=== PATIENT | female | born 1980 | race Caucasian/White ===

== ENCOUNTER 2024-05-08 08:07 | Inpatient (IN) ==
--- NOTE | 2024-05-08 08:28 | Emergency Department Note ---
Impression & Plan Alcohol withdrawal, Hypomagnesemia, Vomiting, Pancreatitis, Cough, Epigastric abdominal pain ED Provider Note NAME: GLENROY LÓPEZ AGE: 44 SEX: F : 1980 ARRIVES VIA: Walk-In INFORMANT: [Patient] ED PROVIDER(S): [Luis M Gutierrez MD] CHIEF COMPLAINT: Alcohol withdrawal HISTORY OF PRESENT ILLNESS: The patient is a 44-year-old female who has a history of alcoholism. She had been sober for over 3 years but started drinking alcohol again about a months ago. She typically drinks about 15-20 beers a day. The patient states that yesterday, she began having some epigastric abdominal pain. Things worsened today. She last had alcohol around 6 hours ago, she had a twisted tea. Since that timeframe, she has been vomiting and unable to keep anything else in her stomach. She has had diarrhea but this is chronic. She has had a cough but this is chronic. The patient has a history of pancreatitis, she believes she may have pancreatitis again. The patient has had seizures from alcohol withdrawal. She is interested in alcohol detox today. Of note, the patient believes that she is dehydrated. She feels quite thirsty. PMHx/PSHx/Social Hx: See Below PHYSICAL EXAM: GENERAL: Patient is in no acute distress. HEENT: No acute trauma, normocephalic atraumatic, mucous membranes dry, no nasal congestion. NECK: No stridor, no adenopathy, no meningismus, trachea is midline. LUNGS: Clear to auscultation bilaterally, no wheeze, no rhonchi, breath sounds equal. HEART: Mildly tachycardic, regular rhythm, no murmurs. ABDOMEN: Soft, mildly tender in the epigastrium, no distention. EXTREMITIES: No cyanosis, full range of motion of all the joints without pain or difficulty. NEUROLOGIC: Oriented x 3, no acute motor or sensory deficits, no focal weakness. SKIN: No jaundice, no diaphoresis. DIFFERENTIAL DIAGNOSIS: Pancreatitis, bowel obstruction, dehydration, electrolyte imbalance, alcohol withdrawal, dysrhythmia, among others. EMERGENCY DEPARTMENT PROCEDURES: MEDICAL DECISION MAKING: There is no leukocytosis or concerning anemia. There is a lower platelet count at 105. Potassium somewhat low, magnesium was quite low. There was no renal failure. There were some elevated liver enzymes, consistent with her alcohol abuse. No evidence for pancreatitis by laboratory testing. The TSH was somewhat high however, the T4 was normal. Alcohol level was elevated at 166, consistent with her alcohol abuse. COVID, influenza and RSV test were negative. Chest x-ray shows some atelectasis or infiltrate at the right lower lung. Abdominal and pelvis that he does suggest pancreatitis, no bowel obstruction. On exam, the patient was mildly tachycardic upon arrival, she was not toxic. The patient received IV thiamine and IV folate. She was given 1 L of IV saline for hydration. She was given IV Phenergan for nausea, she received oral and IV magnesium. She was given IV Protonix. She received IV Zofran. She was given IV Valium and IV Tylenol. She received IV Pepcid. With the above treatment, the patient does seem to be doing better, her heart rate has decreased, she seems more comfortable. Her blood pressure has improved, it was higher when she first arrived. I do think the patient is in need of a hospital stay for her presentation. The primary issue is the alcohol withdrawal and presumed early pancreatitis, the secondary issue centers on the abnormal chest x-ray findings. I spoke with the patient and I spoke with case management, the on-call hospitalist was consulted. Prior/Outside records/notes reviewed: None ECG per my interpretation: Indication was withdrawal. The ECG shows a normal sinus rhythm with a rate of 95. There are some inverted T waves across the anterior leads. There is no acute ST elevation, no PVCs. The QTc is 444. Continuous Cardiac Monitoring per my interpretation: An order was placed for continuous cardiac monitoring. The monitor shows a rate of 112 with sinus tachycardia. Imaging/x-ray results per my interpretation: Chest x-ray shows a potential infiltrate versus atelectasis in the right lower lung. Chronic Medical/Social conditions affecting care: History of alcoholism Care/Management discussed with: Case management, the on-call hospitalist. Level of care consideration(s): After review of the information above and other included data: --I believe the patient requires escalation of care to admission Critical Care Note: I have personally spent 43 minutes of critical care time in the direct management of this patient. This includes bedside care, interpretation of diagnostic studies, and testing, discussion with consultants, patient, and family members, and other required patient management activities. This 43 minutes is in excess of all separately billable procedures. DISPOSITION: Admission Past Med/Surg History Problem List (Updated 05/08/24 @ 14:34 by Luis M Gutiererz MD) Epigastric abdominal pain (Acute) Cough (Acute) Pancreatitis (Acute) Vomiting (Acute) Hypomagnesemia (Acute) Alcohol withdrawal (Acute) Acute bronchitis Hypothyroidism Hypertension Acute pancreatitis Medical History Alcohol withdrawal Social History Smoking Status: Current every day smoker Feels Safe at Home: Yes Allergies Allergies Allergy/AdvReac Type Severity Reaction Status Date / Time No Known Allergies Allergy Unverified 05/08/24 08:13 Home Meds Home Medications Medication Instructions Recorded Confirmed levothyroxine 50 mcg tablet 50 mcg PO QAM 05/08/24 05/08/24 lisinopril 20 mg tablet 20 mg PO QAM 05/08/24 05/08/24 Results & Data (ED) Vital Signs Vital Signs - 24 hr 05/08/24 08:11 05/08/24 08:24 05/08/24 09:00 Temperature 36.8 C Temperature Source Oral Pulse Rate 115 H 102 H Respiratory Rate 16 15 Blood Pressure 185/110 H 130/113 H 158/99 H Blood Pressure Mean 135 118 119 Blood Pressure Position Sitting Pulse Oximetry 98 94 Oxygen Delivery Method Room Air Room Air Sepsis Recent Fever Within 48 Hours No Sepsis New/Unexplained Change in Mental Status No Sepsis Action Taken by Nursing No Action Required 05/08/24 09:00 05/08/24 10:01 Temperature Temperature Source Pulse Rate 90 95 H Respiratory Rate 16 16 Blood Pressure 158/99 H 143/84 H Blood Pressure Mean 118 102 Blood Pressure Position Pulse Oximetry 96 97 Oxygen Delivery Method Room Air Room Air Sepsis Recent Fever Within 48 Hours Sepsis New/Unexplained Change in Mental Status Sepsis Action Taken by Long Term Medications Current Medication List: was personally reviewed by me Laboratory Data Attestation: I reviewed the patient's lab results. 05/08/24 09:56 05/08/24 09:56 Lab Results 05/08/24 05/08/24 05/08/24 Range/Units 08:33 09:56 10:06 WBC Cancelled 5.11 RBC Cancelled 4.35 Hgb Cancelled 14.8 Hct Cancelled 42.4 MCV Cancelled 97.5 MCH Cancelled 34.0 MCHC Cancelled 34.9 RDW Std Deviation Cancelled 40.7 RDW Coeff of Yen Cancelled 11.3 L Plt Count Cancelled 105 L MPV Cancelled 10.6 Immature Gran % (Auto) Cancelled 0.2 Neut % (Auto) Cancelled 46.9 Lymph % (Auto) Cancelled 40.1 [place] % (Auto) Cancelled 10.6 Eos % (Auto) Cancelled 1.4 Baso % (Auto) Cancelled 0.8 Neut # (Auto) Cancelled 2.40 Lymph # (Auto) Cancelled 2.05 [place] # (Auto) Cancelled 0.54 Eos # (Auto) Cancelled 0.07 Baso # (Auto) Cancelled 0.04 Immature Gran # (Auto) Cancelled 0.01 Absolute Nucleated RBC Cancelled Nucleated RBC % (auto) Cancelled Neutrophils % (Manual) Cancelled Band Neutrophils % Cancelled Lymphocytes % (Manual) Cancelled Prolymphocyte % Cancelled Reactive Lymphs % (Man) Cancelled Monocytes % (Manual) Cancelled Eosinophils % (Manual) Cancelled Basophils % (Manual) Cancelled Metamyelocytes % (Man) Cancelled Myelocytes % (Man) Cancelled Promyelocytes % (Man) Cancelled Blast Cells % (Manual) Cancelled Plasma Cell % (Manual) Cancelled Other Cells % Cancelled Nucleated RBC % Cancelled Neutrophils # (Manual) Cancelled Band Neutrophils # Cancelled Total Absolute Neuts Cancelled Lymphocytes # (Manual) Cancelled Prolymphocyte # Cancelled Reactive Lymphs # Cancelled Total Abs Lymphocytes Cancelled Monocytes # (Manual) Cancelled Eosinophils # (Manual) Cancelled Basophils # (Manual) Cancelled Metamyelocytes # (Man) Cancelled Myelocytes # (Manual) Cancelled Promyelocytes # (Man) Cancelled Blast Cells # (Man) Cancelled Plasma Cell # (Manual) Cancelled Other Cells # Cancelled Nucleated RBCs # (Man) Cancelled Hypersegmented Neuts Cancelled Hyposegmented Neuts Cancelled Hypogranular Neuts Cancelled Large Granular Lymphs Cancelled # Lrg Granular Lymphs Cancelled Hairy Cells Cancelled Smudge Cells Cancelled Toxic Granulation Cancelled Toxic Vacuolation Cancelled Dohle Bodies Cancelled Geo Rods Cancelled Platelet Estimate Cancelled Hypogranular Platelets Cancelled Giant Platelets Cancelled Platelet Satelliting Cancelled RBC Morphology Cancelled Polychromasia Cancelled Hypochromasia Cancelled Poikilocytosis Cancelled Basophilic Stippling Cancelled Anisocytosis Cancelled Microcytosis Cancelled Macrocytosis Cancelled Spherocytes Cancelled Pappenheimer Bodies Cancelled Sickle Cells Cancelled Target Cells Cancelled Tear Drop Cells Cancelled Ovalocytes Cancelled Stomatocytes Cancelled Ashley-Leary Bodies Cancelled Echinocytes Cancelled Acanthocytes (Spur) Cancelled Rouleaux Cancelled RBC Agglutinates Cancelled Schistocytes Cancelled Sezary Cell Cancelled Sodium TNP 134 L Potassium TNP 3.4 L Chloride 93 L (98-107) mmol/L Carbon Dioxide 30 (21-32) mmol/L Anion Gap TNP BUN 2 L (6-23) mg/dl Creatinine 0.58 L (0.6-1.2) mg/dl Est Cr Clr Drug Dosing 124.5 ml/min eGFR 113.66 BUN/Creatinine Ratio 3.4 L (10-20) Glucose 113 H (70-99(Fasting)) mg/dl Calcium 11.3 H (8.6-10.3) mg/dl Phosphorus 3.8 (2.5-4.9) mg/dl Magnesium TNP 1.0 L Total Bilirubin 0.9 (0.2-1.0) mg/dl AST TNP 73 H ALT 74 H (7-52) U/L Alkaline Phosphatase 87 (34-104) U/L Total Protein 7.7 (6.0-8.3) gm/dl Albumin 3.8 (3.4-5.0) gm/dl Globulin 3.9 (2.5-4.0) gm/dl Albumin/Globulin Ratio 1.0 (0.9-2) Lipase 68 (11-82) U/L TSH 6.995 H (0.300-4.500) uIu/ml Free T4 1.00 (0.61-1.60) ng/dl Ethyl Alcohol mg/dL 166.3 H (<10.0) mg/dl SARS-CoV-2 (PCR) NEGATIVE (Negative) Influenza Type A (PCR) Negative (Neg) Influenza Type B (PCR) Negative (Neg) RSV (RT-PCR) Negative (Neg) Blood Parasites ID Cancelled Administered Medications Acetaminophen (Acetaminophen 325 Mg Tab) 650 mg PO Q6H PRN PRN Reason: Pain Stop: 06/07/24 11:44 Last Admin: 05/08/24 14:23 Dose: 650 mg Documented By: TRINY Hydromorphone HCl (Hydromorphone Inj 0.5 Mg/0.5 Ml Syr) 0.25 mg IV Q6H PRN PRN Reason: Pain Stop: 05/22/24 11:41 Last Admin: 05/08/24 12:23 Dose: 0.25 mg Documented By: TRINY Potassium Chloride/Sodium Chloride (Normal Saline W/20 Meq Kcl) 20 meq in 1,000 mls @ 80 mls/hr IV .[id number] NITA Stop: 05/10/24 03:14 Last Admin: 05/08/24 13:29 Dose: 80 mls/hr Documented By: TRINY Ondansetron HCl (Ondansetron Inj 2 Mg/Ml 2 Ml Vial) 4 mg IV Q6H PRN PRN Reason: Nausea And Vomiting Stop: 06/07/24 11:39 Last Admin: 05/08/24 12:24 Dose: 4 mg Documented By: TRINY Discontinued Medications Diazepam (Diazepam 5 Mg/Ml 10ml Vial) 5 mg IV NOW STA Stop: 05/08/24 08:24 Last Admin: 05/08/24 08:38 Dose: 5 mg Documented By: WILBERTO Doxycycline Hyclate (Doxycycline Hyclate 100 Mg Cap) 100 mg PO ONE ONE Stop: 05/08/24 12:01 Last Admin: 05/08/24 13:11 Dose: 100 mg Documented By: TRINY Folic Acid (Folic Acid 1 Mg Tab) 1 mg PO ONE ONE Stop: 05/08/24 12:01 Last Admin: 05/08/24 12:24 Dose: 1 mg Documented By: TRINY Gabapentin (Gabapentin 600 Mg Tab) 1,200 mg PO NOW ONE Stop: 05/08/24 11:34 Last Admin: 05/08/24 13:12 Dose: 1,200 mg Documented By: TRINY Promethazine HCl (Phenergan) 12.5 mg in 50.5 mls @ 202 mls/hr IV NOW STA Stop: 05/08/24 08:30 Last Infusion: 05/08/24 09:15 Dose: Infused Documented By: Admin: 05/08/24 08:40 Dose: 202 mls/hr Documented By: WILBERTO Thiamine HCl 100 mg/ Syringe 10 mls @ 2 mls/min IV NOW STA Stop: 05/08/24 08:20 Last Admin: 05/08/24 09:23 Dose: 2 mls/min Documented By: WILBERTO Folic Acid 1 mg/ Syringe 10 mls @ 5 mls/min IV NOW STA Stop: 05/08/24 08:17 Last Admin: 05/08/24 09:23 Dose: 5 mls/min Documented By: WILBERTO Acetaminophen (Ofirmev) 1,000 mg in 100 mls @ 400 mls/hr IV NOW STA Stop: 05/08/24 08:37 Last Infusion: 05/08/24 09:08 Dose: Infused Documented By: Admin: 05/08/24 08:48 Dose: 400 mls/hr Documented By: WILBERTO Sodium Chloride (Nss) 1,000 mls @ 999 mls/hr IV .Q1H1M ONE Stop: 05/08/24 09:23 Last Infusion: 05/08/24 09:38 Dose: Infused Documented By: Admin: 05/08/24 08:35 Dose: 999 mls/hr Documented By: WILBERTO Famotidine (Pepcid 20mg Iv Push) 20 mg in 5 mls @ 2.5 mls/min IV NOW STA Stop: 05/08/24 08:29 Last Admin: 05/08/24 08:37 Dose: 2.5 mls/min Documented By: WILBERTO Pantoprazole Sodium (Protonix) 40 mg in 10 mls @ 5 mls/min IV NOW ONE Stop: 05/08/24 08:29 Last Admin: 05/08/24 09:24 Dose: 5 mls/min Documented By: WILBERTO Magnesium Sulfate/Dextrose (Magnesium Sulfate / D5w) 1 gm in 100 mls @ 100 mls/hr IV NOW STA Stop: 05/08/24 11:30 Last Infusion: 05/08/24 11:41 Dose: Infused Documented By: Admin: 05/08/24 10:37 Dose: 100 mls/hr Documented By: WILBERTO Potassium Chloride (K Elliot / Wtr) 10 meq in 100 mls @ 100 mls/hr IV Q1H NITA Stop: 05/08/24 13:14 Last Infusion: 05/08/24 14:15 Dose: Infused Documented By: Admin: 05/08/24 13:12 Dose: 100 mls/hr Documented By: Infusion: 05/08/24 12:49 Dose: Infused Documented By: Admin: 05/08/24 11:46 Dose: 100 mls/hr Documented By: TRINY Ioversol (Optiray 320 100ml) 94 ml IV ONCE ONE Stop: 05/08/24 10:17 Last Admin: 05/08/24 10:16 Dose: 94 ml Documented By: CRAIG Magnesium Oxide (Magnesium Oxide 400 Mg Tab) 400 mg PO NOW STA Stop: 05/08/24 10:32 Last Admin: 05/08/24 10:37 Dose: 400 mg Documented By: WILBERTO Ondansetron HCl (Ondansetron Inj 2 Mg/Ml 2 Ml Vial) 4 mg IV NOW STA Stop: 05/08/24 08:17 Last Admin: 05/08/24 08:38 Dose: 4 mg Documented By: WILBERTO Thiamine HCl (Thiamine Hcl 100 Mg Tab) 100 mg PO ONE ONE Stop: 05/08/24 12:16 Last Admin: 05/08/24 12:24 Dose: 100 mg Documented By: TRINY Imaging Data Radiologist's Impression: Abdomen/Pelvis CT 05/08/24 08:23 CT OF THE ABDOMEN AND PELVIS WITH CONTRAST CLINICAL HISTORY: Epigastric pain and vomiting. COMPARISON STUDY: None. TECHNIQUE: Following IV administration of 94 mL of Optiray, axial images of the abdomen and pelvis were obtained from the lung bases to the proximal femurs. Images were reviewed in the axial, sagittal, and coronal planes. IV contrast was administered without complication. Automated exposure control was utilized for the study. A dose lowering technique was utilized adhering to the principles of ALARA. CT DOSE: 1187.36 mGy.cm FINDINGS: An 8 mm calcified right lower lobe pulmonary nodule is benign. Moderate groundglass opacities within the lower lungs are present. These are most pronounced within the right middle and right lower lobes. No pneumatosis, free air or portal venous gas is present. There is severe hepatic steatosis. Nodularity of the liver surface is present. No hepatic lesions are identified on the venous phase exam. Recanalized paraumbilical vein is present. Size of the spleen is normal. Adrenal glands are unremarkable. A few small bilateral renal calculi measure up to 3 mm. There are no ureteral calculi. There is no hydronephrosis. There is heterogeneity of the uncinate process of the pancreas with mild peripancreatic stranding. A few calcifications within the uncinate process of the pancreas measure up to 3 mm. No peripancreatic fluid collections are present. There is no biliary ductal dilatation status post cholecystectomy. There is no evidence for a bowel obstruction. Caliber and wall thickness of small and large bowel are normal. The left arm of the intrauterine device appears to slightly extend through the myometrium. The main, left and right portal veins are patent. IMPRESSION: 1. Heterogeneity of the uncinate process of the pancreas with mild peripancreatic stranding suggestive of acute pancreatitis. No peripancreatic fluid collections. No biliary ductal dilatation status post cholecystectomy. A few calcifications within the uncinate process of the pancreas could be related to chronic pancreatitis or represent small ductal calculi. 2. Moderate lower lung groundglass opacities. These suggest an infectious process such as viral pneumonia although are age indeterminate. A follow-up chest CT in 3 months to ensure resolution is recommended. 3. Severe hepatic steatosis with suspected cirrhosis. Recanalized paraumbilical vein suggests portal hypertension. 4. Suspected malpositioned IUD. The left arm appears to slightly extend through the myometrium. 5. Small bilateral renal calculi. ACT 112: Negative or not required by law. Electronically signed by: Octavio Marie M.D. 05/08/2024 10:37 AM Chest X-Ray 05/08/24 08:23 XR chest 1V portable HISTORY: 44 years-old Female vomiting COMPARISON: None TECHNIQUE: AP view of the chest FINDINGS: Cardiac silhouette is upper limits of normal in size. Mild hypoinflation with interstitial coarsening. Patchy ill-defined right basilar predominant opacities. Bones appear intact. IMPRESSION: Mild hypoinflation with ill-defined right basilar predominant opacities which may represent atelectasis versus pneumonitis. ACT 112: Negative or not required by law. The above report was generated using voice recognition software. It may contain grammatical, syntax or spelling errors. Electronically signed by: Aroldo Madrigal M.D. 05/08/2024 9:38 AM Discharge Plan Visit Data Chief Complaint: Alcohol Withdrawal Stated Complaint: ALCOHOL WITHDRAWAL, HAS PANCREATITIS, ABD PAIN ED Provider: Luis M Gutierrez Discharge Problem: Alcohol withdrawal, Hypomagnesemia, Vomiting, Pancreatitis, Cough, Epigastric abdominal pain Patient Disposition: Admitted As Inpatient Condition: Fair Discharge Instructions Interventions: ED Discharge Assessment Last Done: 05/08/24 13:42 Discharge Problem: Alcohol withdrawal Qualifiers: Complication of substance-induced condition: with unspecified complication Q ualified Code(s): F10.939 - Alcohol use, unspecified with withdrawal, unspecified Vomiting Qualifiers: Vomiting type: unspecified Nausea presence: with nausea Qualified Code(s): R 11.2 - Nausea with vomiting, unspecified Pancreatitis Qualifiers: Chronicity: acute Pancreatitis type: alcohol induced Acute pancreatitis complication: no infection or necrosis Qualified Code(s): K85.20 - Alcohol induced acute pancreatitis without necrosis or infection Cough Qualifiers: Cough type: unspecified Qualified Code(s): R05.9 - Cough, unspecified
[2024-05-08] MEDS: SODIUM CHLORIDE 0.9% 1,000 ML IV ONE (08:35)
[2024-05-08] MEDS: FAMOTIDINE 20MG IV PUSH 20 MG/5 ML SYR IV STA (08:37)
[2024-05-08] MEDS: diazePAM 5 MG/ML 10ML VIAL IV STA (08:38)
[2024-05-08] MEDS: ONDANSETRON INJ 2 MG/ML 2 ML VIAL IV STA (08:38)
[2024-05-08] MEDS: PROMETHAZINE 12.5 MG/50.5 ML BAG IV STA (08:40)
[2024-05-08] MEDS: ACETAMINOPHEN 1,000 MG/100 ML VIAL IV STA (08:48)
[2024-05-08] MEDS: FOLIC ACID 1 MG in SYRINGE 9.8 ML IV STA (09:23)
[2024-05-08] MEDS: THIAMINE HCL 100 MG in SYRINGE 9 ML IV STA (09:23)
[2024-05-08] MEDS: PANTOprazole 40 MG/10 ML SYR IV ONE (09:24)
[2024-05-08 09:34] LABS: Alanine Aminotransferase 74 U/L (7-52); Albumin Level 3.8 gm/dl (3.4-5.0); Alkaline Phosphatase 87 U/L (34-104); BUN Creatinine Ratio 3.4 (10-20); Bilirubin,Total 0.9 mg/dl (0.2-1.0); Blood Urea Nitrogen 2 mg/dl (6-23); Calcium 11.3 mg/dl (8.6-10.3); Carbon Dioxide 30 mmol/L (21-32); Chloride 93 mmol/L (98-107); Creatinine Clr Calc Pharmacy 124.5 ml/min; Globulin 3.9 gm/dl (2.5-4.0); Glucose 113 mg/dl (70-99(Fasting)); Lipase 68 U/L (11-82); Thyroid Stimulating Hormone 6.995 uIu/ml (0.300-4.500); Total Protein 7.7 gm/dl (6.0-8.3)
--- NOTE | 2024-05-08 09:41 | XRay Report ---
XR chest 1V portable HISTORY: 44 years-old Female vomiting COMPARISON: None TECHNIQUE: AP view of the chest FINDINGS: Cardiac silhouette is upper limits of normal in size. Mild hypoinflation with interstitial coarsening . Patchy ill-defined right basilar predominant opacities. Bones appear intact. IMPRESSION: Mild hypoinflation with ill-defined right basilar predominant opacities which may represe nt atelectasis versus pneumonitis. ACT 112: Negative or not required by law. The above report was generated using voice recognition software. It may contain grammatical, syntax o r spelling errors. Electronically signed by: Aroldo Madrigal M.D. 05/08/2024 9:38 AM
[2024-05-08] MEDS: OPTIRAY 320 100ml IV ONE (10:16)
[2024-05-08 10:18] LABS: Basophils # (auto) 0.04 K/uL (0.00-0.20); Basophils % (auto) 0.8 %; Eosinophils # (auto) 0.07 K/uL (0.00-0.50); Eosinophils % (auto) 1.4 %; Hematocrit (blood only) 42.4 % (37.0-47.0); Hemoglobin 14.8 g/dl (12.0-16.0); Immature Granulocytes # (auto) 0.01 K/uL (0.01-0.20); Immature Granulocytes % (auto) 0.2 %; Lymphocytes # (auto) 2.05 K/uL (1.20-3.40); Lymphocytes % (auto) 40.1 %; Mean Corpuscular Hgb Conc 34.9 g/dL (32.0-36.0); Mean Corpuscular Volume 97.5 fL (80.0-100.0); Mean Platelet Volume 10.6 fL (9.4-12.4); Monocytes # (auto) 0.54 K/uL (0.11-0.59); Monocytes % (auto) 10.6 %; Neutrophils % (auto) 46.9 %; Platelet Count 105 K/uL (130-400); RDW Coefficient of Variation 11.3 % (11.5-14.5); RDW Standard Deviation 40.7 fL (36.4-46.3); Red Blood Count 4.35 M/uL (4.20-5.40); White Blood Count 5.11 K/ul (4.8-10.8)
[2024-05-08 10:29] LABS: Potassium 3.4 mmol/L (3.5-5.1)
[2024-05-08] MEDS: MAGNESIUM OXIDE 400 MG TAB PO STA (10:37)
[2024-05-08] MEDS: MAGNESIUM SULFATE / D5W 1 GM/100 ML BAG IV STA (10:37)
--- NOTE | 2024-05-08 10:39 | CT Scan Report ---
CT OF THE ABDOMEN AND PELVIS WITH CONTRAST CLINICAL HISTORY: Epigastric pain and vomiting. COMPARISON STUDY: None. TECHNIQUE: Following IV administration of 94 mL of Optiray, axial images of the abdomen and pelvis we re obtained from the lung bases to the proximal femurs. Images were reviewed in the axial, sagittal, and coronal planes. IV contrast was administered without complication. Automated exposure control wa s utilized for the study. A dose lowering technique was utilized adhering to the principles of ALARA . CT DOSE: 1187.36 mGy.cm FINDINGS: An 8 mm calcified right lower lobe pulmonary nodule is benign. Moderate groundglass opaciti es within the lower lungs are present. These are most pronounced within the right middle and right lo wer lobes. No pneumatosis, free air or portal venous gas is present. There is severe hepatic steatosi s. Nodularity of the liver surface is present. No hepatic lesions are identified on the venous phase exam. Recanalized paraumbilical vein is present. Size of the spleen is normal. Adrenal glands are unr emarkable. A few small bilateral renal calculi measure up to 3 mm. There are no ureteral calculi. The re is no hydronephrosis. There is heterogeneity of the uncinate process of the pancreas with mild per ipancreatic stranding. A few calcifications within the uncinate process of the pancreas measure up to 3 mm. No peripancreatic fluid collections are present. There is no biliary ductal dilatation status post cholecystectomy. There is no evidence for a bowel obstruction. Caliber and wall thickness of sma ll and large bowel are normal. The left arm of the intrauterine device appears to slightly extend thr ough the myometrium. The main, left and right portal veins are patent. IMPRESSION: 1. Heterogeneity of the uncinate process of the pancreas with mild peripancreatic stranding suggestiv e of acute pancreatitis. No peripancreatic fluid collections. No biliary ductal dilatation status pos t cholecystectomy. A few calcifications within the uncinate process of the pancreas could be related to chronic pancreatitis or represent small ductal calculi. 2. Moderate lower lung groundglass opacities. These suggest an infectious process such as viral pneum onia although are age indeterminate. A follow-up chest CT in 3 months to ensure resolution is recomme nded. 3. Severe hepatic steatosis with suspected cirrhosis. Recanalized paraumbilical vein suggests portal hypertension. 4. Suspected malpositioned IUD. The left arm appears to slightly extend through the myometrium. 5. Small bilateral renal calculi. ACT 112: Negative or not required by law. Electronically signed by: Octavio Marie M.D. 05/08/2024 10:37 AM
[2024-05-08 10:50] LABS: Influenza A virus by PCR Negative (Neg); Influenza B virus by PCR Negative (Neg); RSV by PCR Negative (Neg); SARS CoV2 RNA(COVID-19) Ceph NEGATIVE (Negative)
[2024-05-08] MEDS ORDERED: LORazepam 2 MG/1 ML VIAL IV PRN ×4 (11:33→16:48)
[2024-05-08] MEDS ORDERED: GABAPENTIN 1200MG ALCOHOL WITHDRAWAL LOAD PO STA (11:33)
[2024-05-08] MEDS: POTASSIUM CHLORIDE / WTR 10 MEQ/100 ML PLCT IV SCH (11:46)
--- NOTE | 2024-05-08 11:58 | History & Physical Report ---
Date of Service May 08, 2024 Assessment & Plan (1) Acute pancreatitis: Plan: Abdominal pain with nausea and diarrhea for the last 2 to 3 days Acute pancreatitis secondary to alcoholism She has been drinking about 15-20 beers a day recently Will give her IV fluid and symptomatic management She will have liquid diet to start with (2) Alcohol withdrawal: Plan: Long history of alcoholism been sober for the last 2 to 3 years Started to drink recently and has been drinking heavily about 15 beers a day She has been complaining abdominal pain with some withdrawal symptoms History of alcohol induced seizures- seizure precaution Will have gabapentin protocol for withdrawal symptoms She was strongly advised to go for inpatient alcohol rehab and she will think about it Electrolyte imbalance Has hypokalemia, hypomagnesemia and is still awaiting for phosphorus level Will replace magnesium and potassium and monitor Cirrhosis as per the imaging studies Secondary to prolonged use of alcohol Strongly advised to quit drinking (3) Hypertension: Plan: continue lisinopril (4) Hypothyroidism: Plan: continue replacement therapy (5) Acute bronchitis: Plan: also has cough with productive of whitish-yellow phlegm She is a smoker Chest x-ray supportive of some pneumonitis Will start doxycycline orally Plan DVT prophylaxis subcu heparin CODE STATUS full History of Present Illness Chief Complaint: Abdominal pain, nausea and diarrhea for the last 2 days Primary Care Provider: Anupam Mi MD she is a 44-year-old female significant past medical history of hypertension, hypothyroidism and alcohol abuse apparently has been drinking a lot recently.She has been complaining of abdominal pain with nausea and diarrhea which has been going on for the last 2 to 3 days and the condition got worse today. she had history of alcoholism and also sober for about a few years and started drinking recently. He denies any fever and or chills but has cough without any phlegm. He denies any chest pain and/or palpitation and denies any problem with her. she had history of alcohol induced seizures. She was noted to have high alcohol level and no significant tremors but likely has pancreatitis given the symptoms and CT findings of pancreatic inflammation. Allergies Allergy/AdvReac Type Severity Reaction Status Date / Time No Known Allergies Allergy Unverified 05/08/24 08:13 Home Medications Medication Instructions Recorded Confirmed Type levothyroxine 50 mcg tablet 50 mcg PO QAM 05/08/24 05/08/24 History lisinopril 20 mg tablet 20 mg PO QAM 05/08/24 05/08/24 History Past Med/Surg History Problem List (Updated 05/08/24 @ 11:52 by Tabitha Shannon MD) Acute bronchitis Hypothyroidism Hypertension Alcohol withdrawal Acute pancreatitis Social History Smoking Status: Current every day smoker Feels Safe at Home: Yes Review of Systems Review of Systems: All systems reviewed and are unremarkable except as noted below Physical Exam Physical Exam: Sitting on bed without any acute distress but very anxious Constitutional: well developed, well nourished, + ill appearing and average body habitus Eyes: PERRL, conjunctivae normal, anicteric sclerae ENMT: external ear and nose normal, oropharynx normal Neck: trachea midline, no thyromegaly Respiratory: normal respiratory effort, lungs clear to auscultation Cardiovascular: Rate/Rhythm: regular rate and regular rhythm; not tachycardic Heart Sounds: normal S1 and normal S2; no murmur Extremities: no edema Gastrointestinal (Abdomen): Inspection/Auscultation: normal bowel sounds; abdomen not distended Percussion/Palpation: + abdomen tender ( minimally tender in the epigastrium) and abdomen soft Musculoskeletal: no acute arthritis involving any joint Neurologic: normal touch/pain/proprioception and moves all extremities; no focal motor deficits Lymphatic: no cervical or axillary lymphadenopathy Results & Data Results & Data Vital Signs (Past 12 Hours) Vital Signs Temp Pulse Resp BP Pulse Ox O2 Del Method 05/08/24 10:01 95 H 16 143/84 H 97 Room Air 05/08/24 09:00 90 16 158/99 H 96 Room Air 05/08/24 09:00 158/99 H 05/08/24 08:24 102 H 15 130/113 H 94 Room Air 05/08/24 08:11 36.8 C 115 H 16 185/110 H 98 Room Air Laboratory Results Short CBC 05/08/24 05/08/24 Range/Units 08:33 09:56 WBC Cancelled 5.11 Hgb Cancelled 14.8 Hct Cancelled 42.4 Plt Count Cancelled 105 L BMP 05/08/24 05/08/24 08:33 09:56 Sodium TNP 134 L Potassium TNP 3.4 L Chloride 93 L Carbon Dioxide 30 BUN 2 L Creatinine 0.58 L Glucose 113 H Calcium 11.3 H Liver Function 05/08/24 05/08/24 Range/Units 08:33 09:56 Total Bilirubin 0.9 (0.2-1.0) mg/dl AST TNP 73 H ALT 74 H (7-52) U/L Alkaline Phosphatase 87 (34-104) U/L Albumin 3.8 (3.4-5.0) gm/dl Medications Administered Current Inpatient Medications Acetaminophen (Acetaminophen 325 Mg Tab) 650 mg PO Q6H PRN PRN Reason: Pain Stop: 06/07/24 11:44 Doxycycline Hyclate (Doxycycline Hyclate 100 Mg Cap) 100 mg PO BID NITA Stop: 05/15/24 11:44 Folic Acid (Folic Acid 1 Mg Tab) 1 mg PO QAM NITA Stop: 06/07/24 11:44 Gabapentin (Gabapentin 1200mg Alcohol Withdrawal Load) 1 each PO NOW STA; Protocol Stop: 05/08/24 11:34 Gabapentin (Gabapentin 600 Mg Tab) 1,200 mg PO NOW ONE Stop: 05/08/24 11:34 Gabapentin (Gabapentin 600 Mg Tab) 600 mg PO Q6H NITA Stop: 05/08/24 23:46 Gabapentin (Gabapentin 600 Mg Tab) 600 mg PO Q8H NITA Stop: 05/09/24 23:46 Gabapentin (Gabapentin 600 Mg Tab) 600 mg PO Q12H NITA Stop: 05/10/24 23:46 Gabapentin (Gabapentin 600 Mg Tab) 600 mg PO Q24H NITA Stop: 05/11/24 23:46 Hydromorphone HCl (Hydromorphone Inj 0.5 Mg/0.5 Ml Syr) 0.25 mg IV Q6H PRN PRN Reason: Pain Stop: 05/22/24 11:41 Potassium Chloride (K Elliot / Wtr) 10 meq in 100 mls @ 100 mls/hr IV Q1H NITA Stop: 05/08/24 13:14 Last Admin: 05/08/24 11:46 Dose: 100 mls/hr Potassium Chloride/Sodium Chloride (Normal Saline W/20 Meq Kcl) 20 meq in 1,000 mls @ 80 mls/hr IV .[id number] NITA Stop: 05/10/24 01:14 Lorazepam (Lorazepam 2 Mg/1 Ml Vial) 1 mg IV ONE PRN; Protocol PRN Reason: EtoH Withdrawal AWSS 6-10 Multivitamins (Multivitamin Tab) 1 tab PO QAM NITA Stop: 06/08/24 08:59 Ondansetron HCl (Ondansetron Inj 2 Mg/Ml 2 Ml Vial) 4 mg IV Q6H PRN PRN Reason: Nausea And Vomiting Stop: 06/07/24 11:39 Thiamine HCl (Thiamine Hcl 100 Mg Tab) 100 mg PO QAM [facility] Stop: 06/07/24 11:44 Code Status & VTE Plan VTE Prophylaxis Plan VTE Prophylaxis will be ordered: Yes
[2024-05-08 12:08] LABS: Phosphorus 3.8 mg/dl (2.5-4.9)
[2024-05-08] MEDS: HYDROmorphone INJ 0.5 MG/0.5 ML SYR IV PRN (12:23)
[2024-05-08] MEDS: FOLIC ACID 1 MG TAB PO ONE (12:24)
[2024-05-08] MEDS: THIAMINE HCL 100 MG TAB PO ONE (12:24)
[2024-05-08] MEDS: ONDANSETRON INJ 2 MG/ML 2 ML VIAL IV PRN (12:24)
--- NOTE | 2024-05-08 12:51 | Electrocardiogram Report ---
Test Reason : Blood Pressure : */* mmHG Vent. Rate : 95 BPM Atrial Rate : 95 BPM P-R Int : 116 ms QRS Dur : 82 ms QT Int : 354 ms P-R-T Axes : 11 13 -9 degrees QTcB Int : 444 ms Normal sinus rhythm Nonspecific T wave abnormality Poor R wave progression, consider anterior MS vs. lead placement vs. LVH Abnormal ECG No previous ECGs available Confirmed by Gerardo Rich ([id number]) on 05/08/2024 12:51:17 PM Referred By: REFERRED SELF Confirmed By: Gerardo Rich
[2024-05-08] MEDS: DOXYCYCLINE HYCLATE 100 MG CAP PO ONE (13:11)
[2024-05-08] MEDS: GABAPENTIN 600 MG TAB PO ONE (13:12)
[2024-05-08] MEDS: NSS + 20MEQ KCL 20 MEQ/1,000 ML BAG IV SCH (13:29)
[2024-05-08] MEDS: ACETAMINOPHEN 325 MG TAB PO PRN (14:23)
[2024-05-08] MEDS: lisinopril 20 MG TAB PO SCH (14:26)
[2024-05-08] MEDS ORDERED: Ativan IV Alcohol Withdrawal--Active Protocol IV PRN (16:48)
[2024-05-08] MEDS: LORazepam 2 MG/1 ML VIAL IV STA ×2 (17:17→18:18)
[2024-05-08] MEDS: DOXYCYCLINE HYCLATE 100 MG CAP PO SCH (19:44)
[2024-05-08] MEDS: GABAPENTIN 600 MG TAB PO SCH (19:44)
[2024-05-08 21:49] LABS: Appearance Urine Clear (Clear); Bacteria Urine Automated 2+ (None Seen); Bilirubin Urine Negative (Negative); Blood Urine Negative (Negative); Cast Urine Automated 0-2 /lpf (0-2); Color Urine Orange; Glucose Urine UA Negative (Negative); Ketones Urine Negative (Negative); Leukocyte Esterase Urine 2+ (Negative); Nitrite Urine Negative (Negative); Protein Urine Negative (Negative); Specific Gravity Urine 1.032 (1.000-1.030); Urobilinogen Urine Negative (Negative); WBC Urine Automated 0-5 /hpf (0-5); pH Urine 7.5 (4.5-7.5)
--- OUTSIDE RECORDS SUMMARY | 2024-05-08 21:54 | External Medical Summary | Summary of Care ---
Author Name Unknown Organization [facility] Address [address] [facility] [place] [address] Phone [phone] Care Team Providers Care Machine Design Teacher Name Role Phone Unavailable Primary Care Provider Unavailabl e Reason for Visit * Reason Comments eRx-Medication Refill Encounter Details Date Type Department Care Team (Late st Contact Info) Description 12/12/2023 Refill Family Medicine [address] [place] [phone] Milli Traylor [address] [place] [address] Hypothyroidism Allergies No known active allergiesdocumented as of this encounter (statuses as of 12/16/2023) Medications Medication Sig Dispensed Refills Start Date End Date Status Lisinopril 20 MG Oral Tablet (Prinivil)Indica tions:HTN, goal below 130/80 Take 1 Tablet by mouth in the morning. 30 Tablet 11 10/11/2023 Active Levothyroxine Sodium 50 MCG Oral Tablet (Levoxyl)Indicat ions:Hypothyroid ism TAKE 1 TABLET BY MOUTH IN THE MORNING. (AT LEAST 30 MIN PRIOR TO BREAKFAST OR OTHER MEDS). 30 Tablet 12/16/2023 Active Levothyroxine Sodium 50 MCG Oral Tablet (Levoxyl)Indicat ions:Hypothyroid ism TAKE 1 TABLET BY MOUTH IN THE MORNING. (AT LEAST 30 MIN PRIOR TO BREAKFAST OR OTHER MEDS). 30 Tablet 11/18/2023 12/16/2023 Discontinued documented as of this encounter (statuses as of 12/16/2023) Active Problems Problem Noted Date Diagnosed Date Other specified hypothyroidism 10/11/2023 documented as of this encounter (statuses as of 12/16/2023) Social History Tobacco Use Types Packs/Day Years Used Date Smoking Tobacco: Every Day Cigarettes Smokeless Tobacco: Never Alcohol Use Standard Drinks/Week Comments Yes 0 (1 standard drink = 0.6 oz pur e alcohol) Sex and Gender Information Value Date Recorded Sex Assigned at Female 10/24/2023 6:35 PM EDT Gender Identity Not on file Sexual Orientation Straight 10/24/2023 6: 35 PM EDT Job Start Date Occupation Industry Not on file Not on file Not on file documented as of this encounter Miscellaneous Notes * Telephone Encounter - Wu Ji LPN - 12/16/2023 11:22 AM EDT Tried to Contact Patient and Unable to get a hold of Patient due to VM box not set up Will need to Try to contact her again * Telephone Encounter - Milli Traylor CRNP - 12/16/2023 10:58 AM EDT Signed Prescriptions: Disp Refills Levothyroxine Sodium 50 MCG Oral Tablet (L*30 Tab*0 Sig: TAKE 1 TABLET BY MOUTH IN THE MORNING. (AT LEAST 30 MIN PRIOR TO BREAKFAST OR OTHER MEDS). Authorizing Provider: MILLI TRAYLOR * Telephone Encounter - Milli Traylor CRNP - 12/16/2023 10:58 AM EDT Patient needs to have labs done I ordered them at her last visit. TSH needs to be checked. This is the last time I am willing to fill the medication without labs. Please notify patient. Thanks! * Telephone Encounter - Wu Ji LPN - 12/16/2023 8:45 AM EDTPending Prescriptions: Disp Refills Levothyroxine Sodium 50 MCG Oral Tablet [P*30 Tab*0 Sig: TAKE 1 TABLET BY MOUTH IN THE MORNING. (AT LEAST 30 MIN PRIOR TO BREAKFAST OR OTHER MEDS). * Telephone Encounter - Wu Ji LPN - 12/16/2023 8:45 AM EDT Pending Prescriptions: Disp Refills Levothyroxine Sodium 50 MCG Oral Tablet (*30 Tab*0 Sig: TAKE 1 TABLET BY MOUTH IN THE MORNING. (AT LEAST 30 MIN PRIOR TO BREAKFAST OR OTHER MEDS). Last Visit: 10/11/2023 (in office), Visit date not found (telemedicine) Next Visit: 12/13/2023 Last date the medication was ordered: 11/18/2023 Patient Active Problem List Diagnosis Other specified hypothyroidism Labs: No results found for: "CREAT" No results found for: "POTASSIUM" No results found for: "TSH" No results found for: "LDL" No results found for: "ALT" Hemoglobin AIC Results: No results found for: "HEMOGLOBIN A1C" * Telephone Encounter - Kenzie [facility] In[facility] - 12/15/2023 11:22 AM EDT Pending Prescriptions: Disp Refills Levothyroxine Sodium 50 MCG Oral Tablet [P*30 Tab*0 Sig: TAKE 1 TABLET BY MOUTH IN THE MORNING. (AT LEAST 30 MIN PRIOR TO BREAKFAST OR OTHER MEDS). * Telephone Encounter - Beatriz Lagos director of medical review - 12/14/2023 11:19 AM EDTPending Prescriptions: Disp Refills Levothyroxine Sodium 50 MCG Oral Tablet [P*30 Tab*0 Sig: TAKE 1 TABLET BY MOUTH IN THE MORNING. (AT LEAST 30 MIN PRIOR TO BREAKFAST OR OTHER MEDS). * Telephone Encounter - Beatriz Lagos director of medical review - 12/14/2023 11:18 AM EDT Received message from [facility] regarding patient needing labs. Call Placed, Unable to reach pt, as therewas no answer and no VM available to leave message. Letter created and sent to patient. Thank you, Beatriz Lagos Hydrology Professor [facility] 12/14/2023, 11:18 AM * Telephone Encounter - Linh Mayes [facility] - 12/13/2023 7:52 PM EDTPending Prescriptions: Disp Refills Levothyroxine Sodium 50 MCG Oral Tablet [P*30 Tab*0 Sig: TAKE 1 TABLET BY MOUTH IN THE MORNING. (AT LEAST 30 MIN PRIOR TO BREAKFAST OR OTHER MEDS). * Telephone Encounter - Linh Mayes RPh - 12/13/2023 7:52 PM EDT Unable to authorize medication refills for pended medication(s) at this time. Per refill protocol patient should have labs on file within past year. Reviewed AMP report, Care Gaps/Health Maintenance,medications list, and for any routine labs typically ordered for this patient. Lab orders placed. Please contact patient to advise of labs ordered for blood draw. Recommend patient to fast if able for labs. Patient may still have water and regular medications. Advise to obtain labs before requesting the next refill. After contacting patient, please forward request to JUNIOR Raymond . Thanks, Linh Mayes PharmD Clinical Pharmacist [facility] ([facility]) [phone] 12/13/2023, 7:52 PM documented in this encounter Plan of Treatment Upcoming Encounters Date Type Department Care Team (Late st Contact Info) Description 04/18/2024 11:40 AM EDT Office Visit Family Medicine [address] [place] [phone] Crissy Gtz MD [address] [place] [address] [place] [address] 10/16/2024 3:00 PM EDT Office Visit Gynecology/Obstetrics Bessy Nicolas [address] [place] [phone] Rita Prado PA-C [address] [place] [address] Health Maintenance Due Date Last Done Comments Diabetes Screening 1979 Lipid Panel 1979 Pneumococcal Vaccine: Pediat rics (0 to 5 Years) and At-Risk Patients (6 to 64 Years) (1 of 2 - PCV) 1985 Depression Screening 1991 HIV Screening 1994 Hepatitis C Screening 1997 TSH 1997 DTaP,Tdap,and Td Vaccines (1 - Tdap) 1998 Hepatitis B (1 of 3 - 19+ 3- dose series) 1998 Pap Smear 01/22/2000 Cervical Cancer Screening 2009 HPV/Co-Test 2009 Mammogram 2019 COVID-19 Vaccine ( - 2022-2 4 season) 2023 Influenza Vaccine (FLU shot) (Season Ended) 2024 GARDASIL-HPV IMMUNIZATION SERIES Aged Out No longer eligible based on patient's age to complete this topic MENINGOCOCCAL (MENACTRA/MENVEO) Aged Out No longer eligible based on patient's age to complete this topic documented as of this encounter Medical Devices Not on filedocumented as of this encounter Visit Diagnoses Diagnosis Hypothyroidism Unspecified hypothyroidism documented in this encounter
--- OUTSIDE RECORDS SUMMARY | 2024-05-08 21:54 | External Medical Summary | Summary of Care ---
Author Name Unknown Organization [facility] Address [address] [facility] [place] [address] Phone [phone] Care Team Providers Care Garage Supervisor Name Role Phone Unavailable Primary Care Provider Unavailabl e Reason for Visit * Reason Comments eRx-Medication Refill Encounter Details Date Type Department Care Team (Late st Contact Info) Description 12/12/2023 Refill Family Medicine [address] [place] [phone] Milli Traylor [address] [place] [address] Hypothyroidism Allergies No known active allergiesdocumented as of this encounter (statuses as of 12/21/2023) Medications Medication Sig Dispensed Refills Start Date [...] as of this encounter (statuses as of 12/21/2023) Active Problems Problem Noted Date Diagnosed Date Other specified hypothyroidism 10/11/2023 documented as of this encounter (statuses as of 12/21/2023) Social History Tobacco Use Types Packs/Day Years [...] encounter Miscellaneous Notes * Telephone Encounter - Danielle San RN - 12/21/2023 12:30 PM EDT NO answer, no voice mail Letter sent * Telephone Encounter - Wu Ji LPN [...] for: "HEMOGLOBIN A1C" * Telephone Encounter - Interface, E[facility] Ss Inbound - 12/15/2023 11:22 AM EDT Pending Prescriptions: Disp Refills Levothyroxine Sodium 50 MCG Oral Tablet [P*30 Tab*0 Sig: TAKE 1 TABLET BY MOUTH IN THE MORNING. (AT LEAST 30 MIN PRIOR TO BREAKFAST OR OTHER MEDS). * Telephone Encounter - Beatriz Lagos doweler - 12/14/2023 11:19 AM EDTPending Prescriptions: Disp Refills Levothyroxine Sodium 50 MCG Oral Tablet [P*30 Tab*0 Sig: TAKE 1 TABLET BY MOUTH IN THE MORNING. (AT LEAST 30 MIN PRIOR TO BREAKFAST OR OTHER MEDS). * Telephone Encounter - Beatriz Lagos doweler - 12/14/2023 11:18 AM EDT Received message from [facility] regarding patient needing labs. Call Placed, Unable to reach pt, as therewas no answer and no VM available to leave message. Letter created and sent to patient. Thank you, Beatriz Lagos Business Writer [facility] 12/14/2023, 11:18 AM * Telephone Encounter - Linh Mayes [facility] - 12/13/2023 7:52 PM EDTPending Prescriptions: Disp [...] Clinical Pharmacist [facility] ([facility]) [phone] 12/13/2023, 7:52 PM documented in this encounter Plan of Treatment Upcoming Encounters Date Type Department Care Team (Late st Contact Info) Description 04/18/2024 11:40 AM EDT Office Visit Family Medicine [address] [place] [phone] Crissy Gtz MD [address] [place] [address] [place] [address] 10/16/2024 3:00 PM EDT Office Visit Gynecology/Obstetrics [facility] [address] [place] [address] Rita Prado PA-C [address] [place] [address] Health Maintenance Due Date Last Done Comments [...]
--- OUTSIDE RECORDS SUMMARY | 2024-05-08 21:54 | External Medical Summary | Summary of Care ---
Author Name Unknown Organization [facility] Address [address] [place] [place] [address] Phone [phone] Care Team Providers Care Claims Supervisor Name Role Phone Unavailable Primary Care Provider Unavailabl e Reason for Visit * Reason Onset Date Comments Medication Refill 01/31/2024 Encounter Details Date Type Department Care Team (Late st Contact Info) Description 01/31/2024 Refill Family Medicine [address] [place] [phone] Moni Lemon [address] [place] [address] Hypothyroidism Allergies No known active allergiesdocumented as of this encounter (statuses as of 01/31/2024) Medications Medication Sig Dispensed Refills Start Date End Date Status Lisinopril 20 MG Oral Tablet (Prinivil)Indicat ions:HTN, goal below 130/80 Take 1 Tablet by mouth in the morning. 30 Tablet 11 10/11/2023 Active Levothyroxine Sodium 50 MCG Oral Tablet (Levoxyl)Indicati ons:Hypothyroidis m Take 1 Tablet by mouth in the morning. (at least 30 min prior to breakfast or other meds). 90 Tablet 01/31/2024 Active Levothyroxine Sodium 50 MCG Oral Tablet (Levoxyl)Indicati ons:Hypothyroidis m TAKE 1 TABLET BY MOUTH IN THE MORNING. (AT LEAST 30 MIN PRIOR TO BREAKFAST OR OTHER MEDS). 30 Tablet 12/16/2023 01/31/2024 Discontinued (Refill) documented as of this encounter (statuses as of 01/31/2024) Active Problems Problem Noted Date Diagnosed Date Other specified hypothyroidism 10/11/2023 documented as of this encounter (statuses as of 01/31/2024) Social History Tobacco Use Types Packs/Day Years Used Date Smoking Tobacco: Every Day Cigarettes Smokeless Tobacco: Never Alcohol Use Standard Drinks/Week Comments Yes 0 (1 standard drink = 0.6 oz pur e alcohol) Utilities Answer Date Recorded Do you have trouble paying y our heating, water, or electric bill? (Adult - for ages 18 years and over) Not on file 12/28/2023 Is your family able to pay t he heat, water, or electric bill? (Household - for ages 0-17 years) Not on file 12/28/2023 Does your family have access to good internet? (Household - for ages 0-17 years) Not on file 12/28/2023 Social Connections Answer Date Recorded How often do you feel lonely or isolated from those around you? (Adult - for ages 18 years and over) Not on file 12/28/2023 Sex and Gender Information Value Date Recorded Sex Assigned at Female 10/24/2023 6:35 PM EDT Gender Identity Not on file Sexual Orientation Straight 10/24/2023 6: 35 PM EDT Job Start Date Occupation Industry Not on file Not on file Not on file documented as of this encounter Miscellaneous Notes * Telephone Encounter - Lokesh Mi MD - 01/31/2024 12:24 PM EDT Signed Prescriptions: Disp Refills Levothyroxine Sodium 50 MCG Oral Tablet (L*90 Tab*0 Sig: Take 1 Tablet by mouth in the morning. (at least 30 min prior to breakfast or other meds). Authorizing Provider: LOKESH MI * Telephone Encounter - Danielle San RN - 01/31/2024 12:19 PM EDTPending Prescriptions: Disp Refills Levothyroxine Sodium 50 MCG Oral Tablet (L*90 Tab*3 Sig: Take 1 Tablet by mouth in the morning. (at least 30 min prior to breakfast or other meds). * Telephone Encounter - Nydia De La Paz OSA - 01/31/2024 10:39 AM EDT Did you pend patient's preferred pharmacy and medication before forwarding?yes Pharmacy: Pending Prescriptions: Disp Refills Levothyroxine Sodium 50 MCG Oral Tablet (*30 Tab*0 Sig: Take 1 Tablet by mouth in the morning. (at least 30 min prior to breakfast or other meds). Last Visit: 10/11/2023 (in office), Visit date not found (telemedicine) Next Visit: 04/18/2024 If no future appointments scheduled, and last appointment is greater than a year ago, please schedule patient for a follow-up appointment Last date the medication was ordered: 12/16/2023 Is this request for a controlled substance?No Urine Drug Screen:No results found for this or any previous visit. Patient Phone Numbers Labs: No results found for: "CREAT", "POTASSIUM", "TSH", "LDLCALC", "LDLDIRECT", "LDLCHOL", "ALT", "HGBA1C" documented in this encounter Plan of Treatment Upcoming Encounters Date Type Department Care Team (Late st Contact Info) Description 04/18/2024 11:40 AM EDT Office Visit Family Medicine [address] [place] [phone] Crissy Gtz MD [address] [place] [address] [place] [phone] 10/16/2024 3:00 PM EDT Office Visit Gynecology/Obstetrics Bessy Nicolas [address] [place] [address] Rita Prado PA-C [address] [place] [address] Health Maintenance Due Date Last Done Comments Diabetes Screening 1979 Lipid Panel 1979 Pneumococcal Vaccine: Pediat rics (0 to 5 Years) and At-Risk Patients (6 to 64 Years) (1 of 2 - PCV) 1985 Depression Screening 1991 HIV Screening 1994 Hepatitis C Screening 1997 TSH 1997 DTaP,Tdap,and Td Vaccines (1 - Tdap) 1998 Hepatitis B Vaccine (1 of 3 - 19+ 3-dose series) 1998 Pap Smear 01/22/2000 Cervical Cancer Screening 2009 HPV/Co-Test 2009 Mammogram 2019 COVID-19 Vaccine (1 - 2022-2 4 season) 2023 Cologuard 01/22/2024 Colonoscopy 01/22/2024 Colorectal Cancer Screening 01/22/2024 Fecal Occult Blood Test 01/22/2024 Sigmoidoscopy 01/22/2024 Influenza Vaccine (FLU shot) (#1) 2024 HPV (Gardasil) Vaccine Aged Out No lo nger eligible based on patient's age to complete this topic MENINGOCOCCAL (MENACTRA/MENVEO) Aged Out No longer eligible based on patient's age to complete this topic documented as of this encounter Medical Devices Not on filedocumented as of this encounter Visit Diagnoses Diagnosis Hypothyroidism Unspecified hypothyroidism documented in this encounter
--- OUTSIDE RECORDS SUMMARY | 2024-05-08 21:54 | External Medical Summary | Summary of Care ---
Author Name Unknown Organization [facility] Address [address] [address] Phone [phone] Care Team Providers Care Flotation Operator Name Role Phone Unavailable Primary Care Provider Unavailabl e Reason for Visit * Reason Comments eRx-Medication Refill Encounter Details Date Type Department Care Team (Late st Contact Info) Description 11/15/2023 Refill Family Medicine [address] [place] [phone] Milli Traylor [address] [place] [address] Hypothyroidism Allergies No known active allergiesdocumented as of this encounter (statuses as of 11/18/2023) Medications Medication Sig Dispensed Refills Start Date End Date Status Lisinopril 20 MG Oral Tablet (Prinivil)Indica tions:HTN, goal below 130/80 Take 1 Tablet by mouth in the morning. 30 Tablet 11 10/11/2023 Active Levothyroxine Sodium 50 MCG Oral Tablet (Levoxyl)Indicat ions:Hypothyroid ism TAKE 1 TABLET BY MOUTH IN THE MORNING. (AT LEAST 30 MIN PRIOR TO BREAKFAST OR OTHER MEDS). 30 Tablet 0 11/18/2023 Active Levothyroxine Sodium 50 MCG Oral Tablet (Levoxyl)Indicat ions:Hypothyroid ism Take 1 Tablet by mouth in the morning. (at least 30 min prior to breakfast or other meds). 30 Tablet 0 10/01/2023 11/18/2023 Discontinued documented as of this encounter (statuses as of 11/18/2023) Active Problems Problem Noted Date Diagnosed Date Other specified hypothyroidism 10/11/2023 documented as of this encounter (statuses as of 11/18/2023) Social History Tobacco Use Types Packs/Day Years [...] encounter Miscellaneous Notes * Telephone Encounter - Milli Traylor CRNP - 11/18/2023 11:37 AM EDT Signed Prescriptions: Disp Refills Levothyroxine Sodium 50 MCG Oral Tablet (L*30 Tab*0 Sig: TAKE 1 TABLET BY MOUTH IN THE MORNING. (AT LEAST 30 MIN PRIOR TO BREAKFAST OR OTHER MEDS). Authorizing Provider: MILLI TRAYLOR * Telephone Encounter - Interface, [facility] - 11/17/2023 3:45 PM EDT Pending Prescriptions: Disp Refills Levothyroxine Sodium 50 MCG Oral Tablet [P*30 Tab*0 Sig: Take 1 Tablet by mouth in the morning. (at least 30 min prior to breakfast or other meds). * Telephone Encounter - Gerardo Chopra [facility] - 11/16/2023 2:45 PM EDT Pending Prescriptions: Disp Refills Levothyroxine Sodium 50 MCG Oral Tablet [P*30 Tab*0 Sig: Take 1 Tablet by mouth in the morning. (at least 30 min prior to breakfast or other meds). * Telephone Encounter - Gerardo Chopra RP - 11/16/2023 2:42 PM EDT Pending Prescriptions: Disp Refills Levothyroxine Sodium 50 MCG Oral Tablet (*30 Tab*0 Sig: TAKE 1 TABLET BY MOUTH IN THE MORNING. (AT LEAST 30 MIN PRIOR TO BREAKFAST OR OTHER MEDS). Last Visit: 10/11/2023 (in office), Visit date not found (telemedicine) Next Visit: 12/13/2023 If no future appointments scheduled, and last appointment is greater than a year ago, please schedule patient for a follow-up appointment Last date the medication was ordered: 10/01/2023 Pharmacy: [id number] Is this request for a controlled substance? No Urine Drug Screen:No results found for this or any previous visit. Patient Phone Numbers Labs: No results found for: "CREAT", "POTASSIUM", "TSH", "LDLCALC", "LDLDIRECT", "LDLCHOL", "ALT", "HGBA1C" documented in this encounter Plan of Treatment Upcoming Encounters Date Type Department Care Team (Late st Contact Info) Description 12/13/2023 1:40 PM EDT Office Visit Family Medicine [address] [phone] Milli Tryalor CRNP [address] [place] [address] [place] [phone] 04/18/2024 11:40 AM EDT Office Visit Family Medicine [address] [place] [phone] Crissy Gtz MD [address] [place] [address] [place] [address] 10/16/2024 3:00 PM EDT Office Visit Gynecology/Obstetrics [facility] [address] [place] [address] Rita Prado PA-C [address] [place] [address] Health Maintenance Due Date Last Done Comments [...] Vaccine (1 - 2022-2 4 season) 2023 Influenza Vaccine [...]
--- OUTSIDE RECORDS SUMMARY | 2024-05-08 21:54 | External Medical Summary | Summary of Care ---
Author Name Unknown Organization [facility] Address [address] [place] [address] Phone [phone] Care Team Providers Care Architecture Instructor Name Role Phone Unavailable Primary Care Provider Unavailabl e Reason for Visit * Reason Comments eRx-Medication Refill Encounter Details Date Type Department Care Team (Late st Contact Info) Description 04/29/2024 Refill Family Medicine [address] [place] [phone] Anupam Mi MD [address] [place] [address] [place] [address] Hypothyroidism Allergies No known active allergiesdocumented as of this encounter (statuses as of 05/02/2024) Medications Medication Sig Dispensed Refills Start Date End Date Status Lisinopril 20 MG Oral Tablet (Prinivil)Indica tions:HTN, goal below 130/80 Take 1 Tablet by mouth in the morning. 30 Tablet 11 10/11/2023 Active Levothyroxine Sodium 50 MCG Oral Tablet (Levoxyl)Indicat ions:Hypothyroid ism TAKE 1 TABLET BY MOUTH IN THE MORNING. (AT LEAST 30 MIN PRIOR TO BREAKFAST OR OTHER MEDS). 90 Tablet 1 05/02/2024 Active Levothyroxine Sodium 50 MCG Oral Tablet (Levoxyl)Indicat ions:Hypothyroid ism Take 1 Tablet by mouth in the morning. (at least 30 min prior to breakfast or other meds). 90 Tablet 01/31/2024 05/02/2024 Discontinued documented as of this encounter (statuses as of 05/02/2024) Active Problems Problem Noted Date Diagnosed Date Other specified hypothyroidism 10/11/2023 documented as of this encounter (statuses as of 05/02/2024) Social History Tobacco Use Types Packs/Day Years [...] encounter Miscellaneous Notes * Telephone Encounter - Jonas Hunt MD - 05/02/2024 10:15 AM EDT Signed Prescriptions: Disp Refills Levothyroxine Sodium 50 MCG Oral Tablet (L*90 Tab*1 Sig: TAKE 1 TABLET BY MOUTH IN THE MORNING. (AT LEAST 30 MIN PRIOR TO BREAKFAST OR OTHER MEDS). Authorizing Provider: JONAS HUNT * Telephone Encounter - Tee Pretty [facility] - 05/01/2024 10:57 AM EDT Pending Prescriptions: Disp Refills Levothyroxine Sodium 50 MCG Oral Tablet (L*90 Tab*1 Sig: TAKE 1 TABLET BY MOUTH IN THE MORNING. (AT LEAST 30 MIN PRIOR TO BREAKFAST OR OTHER MEDS). * Telephone Encounter - Tee Pretty [facility] - 05/01/2024 10:56 AM EDT Patient has no PCP under whom to authorize refills. Please approve if appropriate. Thanks, Tee Pretty, PharmD Clinical Pharmacist [facility] ([facility]) [phone] 05/01/2024, 10:57 AM documented in this encounter Plan of Treatment Upcoming Encounters Date Type Department Care Team (Late st Contact Info) Description 10/16/2024 3:00 PM EDT [facility] [address] [place] [address] Rita Prado PA-C [address] [place] [address] Health Maintenance Due Date Last Done Comments Diabetes Screening 1979 Lipid Panel 1979 Pneumococcal Vaccine: Pediat rics (0 to 5 Years) and At-Risk Patients (6 to 64 Years) (1 of 2 - PCV) 1985 Depression Screening 1991 HIV Screening 1994 Hepatitis C Screening 1997 TSH 1997 DTap/Tdap Vaccines (1 - Tdap) 1998 Hepatitis B Vaccine (1 of 3 - 19+ 3-dose series) 1998 Pap Smear 01/22/2000 Cervical Cancer Screening 2009 HPV/Co-Test 2009 Mammogram 2019 Cologuard 01/22/2024 Colonoscopy 01/22/2024 Colorectal Cancer Screening 01/22/2024 Fecal Occult Blood Test 01/22/2024 Sigmoidoscopy 01/22/2024 COVID-19 Vaccine ( - 2023-2 5 season) 2024 Influenza Vaccine (FLU shot) (#1) 2024 HPV [...]
--- OUTSIDE RECORDS SUMMARY | 2024-05-08 21:54 | External Medical Summary | Summary of Care ---
Author Name Unknown Organization [facility] Address [address] [facility] [address] Phone [phone] Care Team Providers Care Creative/Art Director Name Role Phone Unavailable Primary Care Provider Unavailabl e Reason for Visit * Reason Comments eRx-Medication Refill Encounter Details Date Type Department Care Team (Late st Contact Info) Description 12/12/2023 Refill Family Medicine [address] [place] [phone] Milli Traylor [address] [place] [address] Hypothyroidism Allergies No known active allergiesdocumented as [...] MEDS). * Telephone Encounter - Beatriz [place] field technical assistant - 12/14/2023 11:19 AM EDTPending Prescriptions: Disp Refills Levothyroxine Sodium 50 MCG Oral Tablet [P*30 Tab*0 Sig: TAKE 1 TABLET BY MOUTH IN THE MORNING. (AT LEAST 30 MIN PRIOR TO BREAKFAST OR OTHER MEDS). * Telephone Encounter - Beatriz [place]os PHARM Tech - 12/14/2023 11:18 AM EDT Received message from [facility] regarding patient needing labs. Call Placed, Unable to reach pt, as therewas no answer and no VM available to leave message. Letter created and sent to patient. Thank you, Beatriz [place] [employer] [facility] 12/14/2023, 11:18 AM * Telephone Encounter - Linh Mayes RP - 12/13/2023 7:52 PM EDTPending Prescriptions: Disp Refills Levothyroxine Sodium 50 MCG Oral Tablet [P*30 Tab*0 Sig: TAKE 1 TABLET BY MOUTH IN THE MORNING. (AT LEAST 30 MIN PRIOR TO BREAKFAST OR OTHER MEDS). * Telephone Encounter - Linh Mayes RP - 12/13/2023 7:52 PM EDT Unable to [...] forward request to JUNIOR Raymond . Thanks, Cony CobbD Clinical Pharmacist [facility] [phone] 12/13/2023, 7:52 PM documented in this encounter Plan of Treatment Upcoming Encounters Date Type Department Care Team (Late st Contact Info) Description 04/18/2024 11:40 AM EDT Office Visit Family Medicine [address] [place] [phone] Crissy Gtz MD [address] [place] [address] [place] [address] 10/16/2024 3:00 PM EDT Office Visit Gynecology/Obstetrics [facility] [address] [place] [phone] Rita Prado PA-C [address] [place] [address] Health Maintenance Due Date Last Done Comments [...] 2009 HPV/Co-Test 2009 Mammogram 2019 COVID-19 Vaccine (2022-2 4 season) 2023 Influenza Vaccine (FLU shot) [...]
[2024-05-08 22:10] LABS: Amphetamines+Metham, Urine Pos (Neg); Barbiturates, Urine Neg (Neg); Benzodiazepine, Urine Neg (Neg); Cocaine, Urine Neg (Neg); Fentanyl, Urine Neg (Neg); MDMA (Ecstacy), Urine Neg (Neg); Marijuana, Urine Neg (Neg); Methadone, Urine Neg (Neg); Opiate, Urine Neg (Neg); Phencyclidine, Urine Neg (Neg)
[2024-05-09] MEDS: LEVOTHYROXINE SODIUM 50 MCG TABLET PO SCH (04:29)
[2024-05-09] MEDS: THIAMINE HCL 100 MG TAB PO SCH (08:15)
[2024-05-09] MEDS: MULTIVITAMIN TAB PO SCH (08:15)
[2024-05-09] MEDS: FOLIC ACID 1 MG TAB PO SCH (08:15)
[2024-05-09 09:36] LABS: Albumin Globulin Ratio 1.1 (0.9-2); Albumin Level 3.1 gm/dl (3.4-5.0); BUN Creatinine Ratio 5.6 (10-20); Bilirubin,Total 1.9 mg/dl (0.2-1.0); Calcium 8.8 mg/dl (8.6-10.3); Creatinine Clr Calc Pharmacy 103.9 ml/min; Globulin 2.8 gm/dl (2.5-4.0); Magnesium 1.1 mg/dl (1.7-2.4); Potassium 4.1 mmol/L (3.5-5.1); Total Protein 5.9 gm/dl (6.0-8.3)
--- NOTE | 2024-05-09 10:51 | Hospitalist Progress Note ---
Date of Service May 09, 2024 Assessment & Plan (1) Acute pancreatitis: Plan: Abdominal pain with nausea and diarrhea for the last 2 to 3 days Acute pancreatitis secondary to alcoholism She has been drinking about 15-20 beers a day recently CT noted findings suggestive of pancreatitis Continue IVF Tolerating clears well. Reports being hungry. Will advance to full liquids today and monitor (2) Alcohol withdrawal: Plan: Long history of alcoholism Was sober for the last 2 to 3 years and relapsed recently Has been drinking heavily about 15 beers a day She has been complaining abdominal pain, nausea, vomiting, with some withdrawal symptoms History of alcohol induced seizures- seizure precaution Continue AWSS per protocol Last drink was wednesday Reviewed CT findings with patient and suspected cirrhosis noted on imaging Will need outpatient GI follow up for further eval and workup Counseled extensively regarding alcohol cessation She wants to do outpatient rehab. Not inpatient rehab. CM consulted to provide resources (3) Hypomagnesemia: Plan: Mag is 1.1 today IV mag repletion ordered Monitor (4) Hypertension: Plan: Stable Continue lisinopril (5) Hypothyroidism: Plan: Continue levothyroxine (6) Smoker: (7) Acute bronchitis: Plan: Has cough with productive of whitish-yellow phlegm Reports cough is chronic but worsened recently She is a smoker Chest x-ray suggestive of pneumonitis Cannot rule out aspiration pneumonitis with reported vomiting episodes prior to presentation Currently on doxycycline No leukocytosis. Check procal. If negative, can stop Abx and monitor Counseled extensive regarding quitting smoking. Smokes 0.5 ppd Patient denied illicit drug use. UDS was + for amphetamines Plan DVT prophylaxis: subcu heparin CODE STATUS Full I spent a total of 50 minutes coordinating, documenting and providing care for this patient excluding time spent in performance of separately billed services Admission and Anticipated Discharge Date Admission Date: May 08, 2024 Subjective Patient seen and examined Reports epigastric pain, mildly improved Reports nausea and vomiting has resolved Reports cough productive of clear phlegm Denied dysuria, freq, urgency, hematuria Denied other complaints on ROS Physical Exam Constitutional: + well hydrated; no acute distress Eyes: PERRL, conjunctivae normal, anicteric sclerae ENMT: external ear and nose normal, oropharynx normal Respiratory: normal respiratory effort, lungs clear to auscultation Cardiovascular: Rate/Rhythm: regular rate and regular rhythm Gastrointestinal (Abdomen): Soft, not distended, +epigastric tenderness, normal bowel sounds Musculoskeletal: No pedal edema Neurologic: PERRL, EOMI, accommodation nl, no face palsy, no dysarthria +tremors Psychiatric: A+Ox3, euthymic affect Results & Data Results & Data Vital Signs (Past 12 Hours) Vital Signs Temp Pulse Pulse Resp BP Pulse Ox O2 Del Method 05/09/24 08:19 36.8 C 82 16 130/85 97 Room Air 05/09/24 07:52 Room Air 05/09/24 07:13 78 05/09/24 04:14 36.6 C 93 H 20 124/86 96 Room Air Laboratory Results Abnormal lab results 05/08/24 05/09/24 Range/Units 21:19 08:39 Sodium 135 L (136-145) mmol/L BUN 4 L (6-23) mg/dl BUN/Creatinine Ratio 5.6 L (10-20) Magnesium 1.1 L (1.7-2.4) mg/dl Total Bilirubin 1.9 H D (0.2-1.0) mg/dl AST 68 H (13-39) U/L ALT 53 H (7-52) U/L Total Protein 5.9 L D (6.0-8.3) gm/dl Albumin 3.1 L (3.4-5.0) gm/dl Ur Specific [place] 1.032 H (1.000-1.030) Ur Leukocyte Esterase 2+ H (Negative) Urine RBC (Auto) 3-5 H (0-2) /hpf U Epithel Cells (Auto) 3-5 H (0-2) /hpf Urine Bacteria (Auto) 2+ H (None Seen) U Amphetamin/Meth Scrn Pos H (Neg)
[2024-05-09] MEDS: MAGNESIUM SULFATE / D5W 1 GM/100 ML BAG IV SCH (11:10)
[2024-05-09 11:14] LABS: Hematocrit (blood only) 43.4 % (37.0-47.0); Mean Corpuscular Hemoglobin 34.1 pg (25.0-34.0); Mean Corpuscular Hgb Conc 34.6 g/dL (32.0-36.0); Mean Corpuscular Volume 98.6 fL (80.0-100.0); Mean Platelet Volume 11.6 fL (9.4-12.4); Platelet Count 77 K/uL (130-400); RDW Coefficient of Variation 11.3 % (11.5-14.5); RDW Standard Deviation 41.6 fL (36.4-46.3); White Blood Count 4.68 K/ul (4.8-10.8)
[2024-05-09 11:21] LABS: Basophils # (auto) 0.04 K/uL (0.00-0.20); Basophils % (auto) 0.9 %; Eosinophils # (auto) 0.19 K/uL (0.00-0.50); Eosinophils % (auto) 4.1 %; Immature Granulocytes # (auto) 0.03 K/uL (0.01-0.20); Immature Granulocytes % (auto) 0.6 %; Lymphocytes # (auto) 2.48 K/uL (1.20-3.40); Monocytes # (auto) 0.52 K/uL (0.11-0.59); Monocytes % (auto) 11.1 %; Neutrophils # (auto) 1.42 K/uL (1.40-6.50); Neutrophils % (auto) 30.3 %; Platelet Estimate Decreased (Normal)
[2024-05-09] MEDS: GABAPENTIN 600 MG TAB PO SCH (15:04)
[2024-05-09] MEDS: HEPARIN SOD 5,000 UNIT/0.5 ML VIAL SQ SCH (21:02)
[2024-05-10 07:00] LABS: Hematocrit (blood only) 37.5 % (37.0-47.0); Hemoglobin 12.6 g/dl (12.0-16.0); Mean Corpuscular Hemoglobin 34.3 pg (25.0-34.0); Mean Corpuscular Hgb Conc 33.6 g/dL (32.0-36.0); Mean Corpuscular Volume 102.2 fL (80.0-100.0); Mean Platelet Volume 11.5 fL (9.4-12.4); Platelet Count 85 K/uL (130-400); RDW Coefficient of Variation 11.3 % (11.5-14.5); RDW Standard Deviation 42.5 fL (36.4-46.3); Red Blood Count 3.67 M/uL (4.20-5.40); White Blood Count 4.13 K/ul (4.8-10.8)
[2024-05-10 07:04] LABS: Albumin Level 2.8 gm/dl (3.4-5.0); Bilirubin,Total 1.3 mg/dl (0.2-1.0); Calcium 8.6 mg/dl (8.6-10.3); Magnesium 1.6 mg/dl (1.7-2.4); Potassium 4.1 mmol/L (3.5-5.1)
[2024-05-10 07:10] LABS: BUN Creatinine Ratio 8.2 (10-20); Creatinine Clr Calc Pharmacy 121.1 ml/min; Globulin 2.7 gm/dl (2.5-4.0); Phosphorus 3.2 mg/dl (2.5-4.9); Total Protein 5.5 gm/dl (6.0-8.3)
[2024-05-10] MEDS: LORazepam 2 MG/1 ML VIAL IV PRN (08:56)
[2024-05-10] MEDS ORDERED: LORazepam 1 MG TAB PO PRN ×2 (09:51)
[2024-05-10] MEDS ORDERED: Ativan PO Alcohol Withdrawal--Active Protocol PO PRN (09:51)
[2024-05-10] MEDS ORDERED: KETOROLAC TROMETHAMINE 15 MG/ML VIAL IV PRN (09:54)
[2024-05-10] MEDS ORDERED: NALTREXONE HCL 50 MG TAB PO SCH (10:00)
--- NOTE | 2024-05-10 10:04 | Hospitalist Progress Note ---
Date of Service May 10, 2024 Assessment & Plan (1) Acute pancreatitis: (2) Alcohol withdrawal: (3) Hypomagnesemia: (4) Hypertension: (5) Hypothyroidism: (6) Smoker: (7) Acute bronchitis: (8) Neutropenia: (9) Thrombocytopenia: (10) Alcohol abuse: Plan Patient with acute alcohol induced pancreatitis in the setting of alcohol misuse and dependence. Abdominal pain improving, advancing diet Patient still with significant withdrawal symptoms, continue gabapentin taper protocol, as needed Ativan Monitor electrolytes Patient with neutropenia and thrombocytopenia most likely due to chronic alcohol misuse, continue to monitor Continue doxycycline for possible acute bronchitis Discontinue narcotic medications, use Toradol for pain, pain is significantly improved. Discussed naltrexone treatment with the patient, she was agreeable to starting this, will start tomorrow due to recent narcotic use for pain management Patient states that she will continue to follow with outpatient counseling for her chronic alcohol dependence Anticipate possible discharge 1 to 2 days if withdrawal symptoms continue to improve Admission and Anticipated Discharge Date Admission Date: May 08, 2024 Subjective Patient still sweaty, tremulous and signs of withdrawal. Last drink about 3 days ago. Abdominal pain is significantly improved and tolerated a regular diet this morning. Physical Exam Physical Exam: Constitutional: Alert, diaphoretic HEENT: Mucous membranes moist. Lungs: Decreased breath sounds at bases CV: S1-S2, regular Abdomen: Soft, no distention, no guarding, no rigidity, mild epigastric tenderness Extremities: No significant edema Neuro: No focal deficits, tremulous Psych: Cooperative, normal mood Results & Data Results & Data Vital Signs (Past 12 Hours) Vital Signs Temp Pulse Pulse Resp BP Pulse Ox O2 Del Method 05/10/24 07:42 36.8 C 58 L 16 130/90 94 Room Air 05/10/24 07:36 Room Air 05/10/24 07:09 71 05/10/24 03:24 36.8 C 71 18 118/82 97 Room Air 05/09/24 23:07 36.8 C 77 18 124/82 98 Room Air Diagnostic Findings Reviewed imaging, laboratory and diagnostic studies. Pertinent findings as below. WBCs 4.1 Hemoglobin 12.6 Platelets 85, improved
[2024-05-10] MEDS: LOPERAMIDE HCL 2 MG CAP PO PRN (14:27)
[2024-05-10] MEDS: GABAPENTIN 600 MG TAB PO SCH (16:56)
[2024-05-10] MEDS: LORazepam 1 MG TAB PO PRN (20:55)
[2024-05-11 07:38] LABS: BUN Creatinine Ratio 12.2 (10-20); Calcium 8.5 mg/dl (8.6-10.3); Creatinine Clr Calc Pharmacy 99.8 ml/min; Magnesium 1.4 mg/dl (1.7-2.4); Potassium 3.8 mmol/L (3.5-5.1)
[2024-05-11] MEDS: NALTREXONE HCL 50 MG TAB PO SCH (09:03)
[2024-05-11] MEDS: MAGNESIUM OXIDE 400 MG TAB PO SCH (10:18)
--- NOTE | 2024-05-11 12:06 | Hospitalist Progress Note ---
Date of Service May 11, 2024 Assessment & Plan (1) Alcohol withdrawal: (2) Hypomagnesemia: (3) Acute pancreatitis: (4) Hypertension: (5) Hypothyroidism: (6) Smoker: (7) Acute bronchitis: (8) Neutropenia: (9) Thrombocytopenia: (10) Alcohol abuse: Plan Patient continues to be fairly symptomatic with withdrawal symptoms. Continue gabapentin taper Continue lorazepam as needed Start naltrexone today Continue on her current diet, tolerating without any discomfort Replace magnesium orally Encouraged activity Anticipate discharge tomorrow Admission and Anticipated Discharge Date Admission Date: May 08, 2024 Subjective Patient tolerating her diet without any discomfort. Still somewhat tremulous and diaphoretic with ongoing withdrawal symptoms Physical Exam Physical Exam: Constitutional: Alert, mild distress HEENT: Mucous membranes moist. Lungs: Clear to auscultation, decreased, no wheezes rales or rhonchi CV: S1-S2, regular Abdomen: Soft, nontender, nondistended Extremities: No significant edema Neuro: No focal deficits, mild to moderate tremor Psych: Cooperative, normal mood Results & Data Results & Data Vital Signs (Past 12 Hours) Vital Signs Temp Pulse Pulse Resp BP Pulse Ox O2 Del Method 05/11/24 11:09 36.3 C L 85 18 137/99 96 Room Air 05/11/24 07:33 36.6 C 70 18 114/77 98 Room Air 05/11/24 07:10 73 05/11/24 03:35 36.8 C 83 18 121/82 96 Room Air Diagnostic Findings Magnesium 1.4 Potassium 3.8
[2024-05-11] MEDS: NICOTINE 14 MG/24 HR PATCH TD SCH (14:30)
[2024-05-12 04:24] VITALS: O2SAT 98
[2024-05-12] MEDS: GABAPENTIN 600 MG TAB PO SCH (05:47)
[2024-05-12 08:09] VITALS: BP 146/92; RESP 18; TEMP 97.9
[2024-05-12 08:39] LABS: Calcium 8.7 mg/dl (8.6-10.3); Magnesium 1.7 mg/dl (1.7-2.4)
[2024-05-12 08:44] LABS: BUN Creatinine Ratio 12.5 (10-20); Creatinine Clr Calc Pharmacy 113.4 ml/min
[2024-05-12 08:46] LABS: Hematocrit (blood only) 37.5 % (37.0-47.0); Hemoglobin 12.9 g/dl (12.0-16.0); Mean Corpuscular Hgb Conc 34.4 g/dL (32.0-36.0); Mean Corpuscular Volume 98.9 fL (80.0-100.0); Mean Platelet Volume 11.6 fL (9.4-12.4); Platelet Count 106 K/uL (130-400); RDW Coefficient of Variation 11.1 % (11.5-14.5); RDW Standard Deviation 40.8 fL (36.4-46.3); Red Blood Count 3.79 M/uL (4.20-5.40); White Blood Count 5.51 K/ul (4.8-10.8)
--- NOTE | 2024-05-12 09:58 | Discharge Summary ---
Discharge Summary Date of Service May 12, 2024 Principal Dx & Hospital Course #1 = Principal Diagnosis (1) Alcohol withdrawal: (2) Hypomagnesemia: (3) Acute pancreatitis: (4) Hypertension: (5) Hypothyroidism: (6) Smoker: (7) Acute bronchitis: (8) Neutropenia: (9) Thrombocytopenia: (10) Alcohol abuse: Plan Patient presented to the emergency room with severe abdominal pain and alcohol intoxication. Patient was admitted for acute alcohol induced pancreatitis and concerns for alcohol withdrawal. Patient was given fluid resuscitation and put on bowel rest. Her given pain control for her pancreatitis. She was placed on a gabapentin taper for her alcohol withdrawal symptoms with as needed Ativan. Through the course of her hospitalization her abdominal pain rapidly improved. Her diet was advanced and she tolerated it well. She was titrated and tapered off the gabapentin. She we discussed treatment options with naltrexone. She was willing to give this a try. It was started here in the hospital and she tolerated well. She was given information for outpatient alcohol dependence clinic and possible considering Vivitrol injections. Given the information for [facility]. She also is actively engaged with counseling. On the day of discharge she was tolerating a full diet. Her electrolytes have been replaced and stabilized. Her neutropenia and thrombocytopenia from her alcohol misuse has significantly improved. She had minimal to no withdrawal symptoms. She be discharged to outpatient care and follow-up. Notes For Next Care Provider Continue to encourage her to abstain from all alcohol and beer Encouraged her to consider Vivitrol injections Encouraged her to stop smoking Medication Changes From Visit Naltrexone daily to decrease alcohol cravings Admission HPI Per Admitting Provider she is a 44-year-old female significant past medical history of hypertension, hypothyroidism and alcohol abuse apparently has been drinking a lot recently.She has been complaining of abdominal pain with nausea and diarrhea which has been going on for the last 2 to 3 days and the condition got worse today. she had history of alcoholism and also sober for about a few years and started drinking recently. He denies any fever and or chills but has cough without any phlegm. He denies any chest pain and/or palpitation and denies any problem with her. she had history of alcohol induced seizures. She was noted to have high alcohol level and no significant tremors but likely has pancreatitis given the symptoms and CT findings of pancreatic inflammation. Admission Exam Per Admitting Provider See H&P Discharge Exam Constitutional: Alert, nontoxic, no acute distress, playing games on her phone HEENT: Mucous membranes moist. Lungs: Clear to auscultation, decreased, no wheezes rales or rhonchi CV: S1-S2, regular Abdomen: Soft, nontender, nondistended Extremities: No significant edema Neuro: No focal deficits Psych: Cooperative, normal mood Updated Medication List Medication Instructions Recorded Confirmed Type levothyroxine 50 mcg tablet 50 mcg PO QAM 05/08/24 05/08/24 History lisinopril 20 mg tablet 20 mg PO QAM 05/08/24 05/08/24 History multivitamin with folic acid 400 1 tab PO QAM 30 days #30 tabs 05/12/24 Rx mcg tablet (Daily-Jovita (with folic acid)) naltrexone 50 mg tablet 50 mg PO DAILY 30 days #30 tabs 05/12/24 Rx Hospital Stay Data Consultations 05/08/24 11:06 ED Decision to Admit Stat Diagnostic Imagining Performed 05/08/24 08:23 CT abd pelvis IV con only Stat Reviewed imaging, laboratory and diagnostic studies. Pertinent findings as below. WBCs 5.5 Hemoglobin 12.9 Platelets 106 Electrolytes stable Creatinine 0.64 Pending Results Patient Have Any Pending Studies at Discharge: No Discharge Instructions Given to Patient (Per Discharging Provider) Strongly encourage you to stop all beer and alcohol Strongly encourage you to continue with outpatient counseling, consider continuing the naltrexone or consider Vivitrol injections Strongly encourage you to decrease or stop smoking Total Time Total Time Spent Total Time Spent (In Minutes): 32
[2024-05-12 11:13] VITALS: PULSE 69
[2024-05-12 15:02] LABS: Amphetamine Urine, Confirm NEGATIVE ng/mL (<250); Methamphetamine, Ur Confirm 1090 ng/mL (<250)
== END 2024-05-12 12:12 | disposition home or self-care (01) | DRG 896 ==
LOC: ED 08:07 → SUATTDRO 11:31 → EDINP 11:31 → 2N 13:42

== ENCOUNTER 2024-09-28 15:04 | Inpatient (IN) ==
[2024-09-28] MEDS ORDERED: LORazepam 2 MG/1 ML VIAL IV PRN ×2 (15:58)
[2024-09-28] MEDS ORDERED: Ativan IV Alcohol Withdrawal--Active Protocol IV PRN (15:58)
--- NOTE | 2024-09-28 16:09 | Emergency Department Note ---
History of Present Illness General Chief complaint: Detox Request Stated complaint: I NEED A MEDICAL DETOX FOR ALCOHOL Time Seen by Provider: 09/28/24 15:05 Source: patient Mode of arrival: ambulatory Limitations: no limitations History of Present Illness Patient is a 44-year-old female with history of alcohol use disorder, recurrent pancreatitis, hypothyroidism, hypertension, chronic liver disease who presents requesting detox. She says she last drank about 4 hours ago. Typically drinks about 20 beers a day. She says since the holidays her alcohol use is increased and she is looking to get into rehab facility. She does have a history of withdrawal seizures in the past. She also states she has had about a month of ongoing intermittent nausea and, vomiting, loose stools. She reports some chronic upper abdominal discomfort unchanged from baseline. Denies any other drug use at this time. No SI or HI reported. Denies any visual, auditory, tactile hallucinations. Home Medications Medication Instructions Recorded Confirmed Type levothyroxine 50 mcg tablet 50 mcg PO QAM 05/08/24 09/28/24 History lisinopril 20 mg tablet 20 mg PO QAM 05/08/24 09/28/24 History esomeprazole magnesium 20 mg 20 mg PO DAILY 09/28/24 09/28/24 History capsule,delayed release (Nexium) multivitamin 1 tab PO DAILY 09/28/24 09/28/24 History Allergies Allergy/AdvReac Type Severity Reaction Status Date / Time No Known Allergies Allergy Unverified 09/28/24 17:42 Past Med/Surg History Problem List (Updated 09/28/24 @ 18:12 by Aniket Ponce MD) Alcohol abuse Thrombocytopenia Neutropenia Smoker Epigastric abdominal pain (Acute) Cough (Acute) Pancreatitis (Acute) Vomiting (Acute) Hypomagnesemia (Acute) Alcohol withdrawal (Acute) Hypothyroidism Hypertension Acute pancreatitis Medical History Alcohol withdrawal Social History Smoking Status: Current every day smoker Tobacco Type: Cigarettes Second Hand Exposure: Yes; Do You Dip or Chew Tobacco: No; Hx Alcohol Use: Yes Alcohol type: beer Hx Substance Use: Yes Last Used Substance: Unknown Last Used Substance Other:: states has not used any substances Preferred Language: Yoruba Communication Ability: Effective Ad Trafficker Required: No Beliefs That Will Affect Care: None Current Living Situation: Other Feels Safe at Home: Yes Assistive Devices: None Review of Systems See HPI for pertinent positives & negatives. Physical Exam Vital Signs Vital Signs - 24 hr 09/28/24 15:10 09/28/24 16:48 09/28/24 16:54 Temperature 36.8 C Temperature Source Temporal Artery Scan Pulse Rate 95 H 84 Pulse Rate from SpO2 Sensor Respiratory Rate 18 Respiratory Effort / Characteristics Non-Labored Respiratory Depth Normal Blood Pressure 136/93 114/81 Blood Pressure Mean 107 97 Pulse Oximetry 95 Oxygen Delivery Method Room Air Sepsis Recent Fever Within 48 Hours No Sepsis New/Unexplained Change in Mental Status No Sepsis Action Taken by Nursing No Action Required 09/28/24 17:00 Temperature Temperature Source Pulse Rate 82 Pulse Rate from SpO2 Sensor 80 Respiratory Rate 13 Respiratory Effort / Characteristics Respiratory Depth Blood Pressure 124/90 Blood Pressure Mean 101 Pulse Oximetry 97 Oxygen Delivery Method Sepsis Recent Fever Within 48 Hours Sepsis New/Unexplained Change in Mental Status Sepsis Action Taken by Nursing see below Constitutional WD/WN, vitals as above Eyes PERRL, conjunctivae normal, anicteric sclerae Respiratory normal respiratory effort, lungs clear to auscultation Cardiovascular RRR, no murmur, no edema Gastrointestinal (Abdomen) soft, nondistended, minimal epigastric tenderness to palpation, negative Goodman sign, no mass, nonperitoneal exam Musculoskeletal no cyanosis or clubbing, extremities motor strength 5/5 Skin no rashes, warm and dry Neurologic CN's II-XI intact bilaterally and awake; no focal motor deficit, not confused and not obtunded Motor/Sensory: + tremor (observed while arms extended ) Psychiatric A+Ox3, euthymic affect Course Administered Medications Magnesium Sulfate/Dextrose (Magnesium Sulfate / D5w) 1 gm in 100 mls @ 200 mls/hr IV Q30M [facility] Stop: 09/28/24 18:32 Last Admin: 09/28/24 18:03 Dose: 200 mls/hr Documented By: ALINA Discontinued Medications Sodium Chloride (Nss) 1,000 mls @ 999 mls/hr IV .Q1H1M [facility] Stop: 09/28/24 16:56 Last Infusion: 09/28/24 17:26 Dose: Infused Documented By: Admin: 09/28/24 16:24 Dose: 999 mls/hr Documented By: ALINA Ioversol (Optiray 320 100ml) 94 ml IV ONCE ONE Stop: 09/28/24 16:43 Last Admin: 09/28/24 16:42 Dose: 94 ml Documented By: CRAIG Ondansetron HCl (Ondansetron Inj 2 Mg/Ml 2 Ml Vial) 4 mg IV NOW STA Stop: 09/28/24 15:57 Last Admin: 09/28/24 16:24 Dose: 4 mg Documented By: ALINA Medical Decision Making Differential Diagnosis Alcohol withdrawal, alcohol pancreatitis, metabolic abnormality Medical Records Attestation: I reviewed the patient's medical records. Home Medications Current Medication List: was personally reviewed by me Laboratory Data Attestation: I reviewed the patient's lab results. 09/28/24 15:49 09/28/24 15:49 Lab Results 09/28/24 09/28/24 Range/Units 15:41 15:49 WBC 5.15 (4.8-10.8) K/ul RBC 4.01 L (4.20-5.40) M/uL Hgb 14.1 (12.0-16.0) g/dl Hct 40.1 (37.0-47.0) % MCV 100.0 (80.0-100.0) fL MCH 35.2 H (25.0-34.0) pg MCHC 35.2 (32.0-36.0) g/dL RDW Std Deviation 42.4 (36.4-46.3) fL RDW Coeff of Yen 11.5 (11.5-14.5) % Plt Count 81 L (130-400) K/uL MPV 10.9 (9.4-12.4) fL Immature Gran % (Auto) 0.2 % Neut % (Auto) 41.5 % Lymph % (Auto) 46.2 % [place] % (Auto) 9.1 % Eos % (Auto) 1.4 % Baso % (Auto) 1.6 % Neut # (Auto) 2.14 (1.40-6.50) K/uL Lymph # (Auto) 2.38 (1.20-3.40) K/uL [place] # (Auto) 0.47 (0.11-0.59) K/uL Eos # (Auto) 0.07 (0.00-0.50) K/uL Baso # (Auto) 0.08 (0.00-0.20) K/uL Immature Gran # (Auto) 0.01 (0.01-0.20) K/uL Sodium 134 L (136-145) mmol/L Potassium 3.7 (3.5-5.1) mmol/L Chloride 99 (98-107) mmol/L Carbon Dioxide 25 (21-32) mmol/L Anion Gap 10 (3-11) BUN 2 L (6-23) mg/dl Creatinine 0.45 L (0.6-1.2) mg/dl Est Cr Clr Drug Dosing 143.1 ml/min eGFR 120.83 BUN/Creatinine Ratio 4.4 L (10-20) Glucose 118 H (70-99(Fasting)) mg/dl Calcium 9.0 (8.6-10.3) mg/dl Magnesium 1.6 L (1.7-2.4) mg/dl Total Bilirubin 1.0 (0.2-1.0) mg/dl AST 124 H (13-39) U/L ALT 57 H (7-52) U/L Alkaline Phosphatase 90 (34-104) U/L Total Protein 7.4 (6.0-8.3) gm/dl Albumin 4.0 (3.4-5.0) gm/dl Globulin 3.4 (2.5-4.0) gm/dl Albumin/Globulin Ratio 1.2 (0.9-2) Lipase 39 (11-82) U/L Ethyl Alcohol mg/dL 331.4 H (<10.0) mg/dl Imaging Data Radiologist's Impression: Abdomen/Pelvis CT 09/28/24 15:57 EXAMINATION: Abdomen and pelvis CT with CLINICAL HISTORY: Here for alcohol detox last 24 hours ago, vomiting every day for 8 weeks. Abdominal pain. PRIORS: 05/08/2024 TECHNIQUE: Contiguous axial images were obtained through the abdomen and pelvis with the use of intravenous contrast. Sagittal and coronal reformations are supplied. FINDINGS: Mild hypoventilatory changes at the lung bases. Calcified granuloma present in the right lower lobe. Fatty infiltration of the liver noted. Liver is enlarged with mildly nodular capsule with appearance of hepatic cirrhosis. No discrete enhancing mass. Gallbladder surgically absent. Portal vein is patent. Spleen is not enlarged. Stomach is under distended with no extraluminal gas or surrounding inflammatory change. The pancreas, spleen, adrenals, aorta and IVC are morphologically unremarkable. Mild-moderate atherosclerotic disease of the abdominal aorta. No hemoperitoneum or ascites. An intrauterine device noted in the central uterus not further localized. The kidneys enhance symmetrically no obstructing renal calculus or hydronephrosis. A phlebolith is present adjacent to the distal right ureter on image 247, series 3, not within the ureter. Colon is under distended. No pericolonic inflammatory change. No dilated loops of bowel. Urinary bladder distended and morphologically unremarkable. No pelvic sidewall adenopathy. No free fluid in the pelvis. No adenopathy in the abdomen. In bone windows no acute osseous abnormality. IMPRESSION: 1. No CT evidence of an acute abdominal or pelvic abnormality. 2. Hepatic cirrhosis and fatty infiltration of the liver. Spleen is normal in size. Electronically signed by Inez Duarte 09-28-2024 4:59 PM MDM Narrative Patient is a 44 y.o. F who presents for inpatient detox. Last drank 4 hours prior to arrival. CIWA score < 5 here in ED. Withdrawal power plan ordered. Labwork shows chronic hyponatremia. Slight hypomagnesemia which was repleted in the ED. No evidence of pancreatitis. CT A/P without any acute abnormalities. Patient to be admitted for alcohol detox. quality management coordinator in ED recommends inpatient psych consult for dual diagnosis and to coordinate rehab placement upon d[facility] Impression & Plan Alcohol withdrawal Admit Discharge Plan Visit Data Chief Complaint: Detox Request Stated Complaint: I NEED A MEDICAL DETOX FOR ALCOHOL ED Provider: Aniket Ponce Discharge Problem: Alcohol withdrawal Forms Stand Alone Forms: My [facility], Suicide Prevention Resources Prescriptions Prescriptions: No Action lisinopril 20 mg tablet 20 mg PO QAM levothyroxine 50 mcg tablet 50 mcg PO QAM multivitamin Tablet 1 tab PO DAILY esomeprazole magnesium [Nexium] 20 mg Capsule,Delayed Release(Dr/Ec) 20 mg PO DAILY Referrals Referrals: Anupam Mi MD [Primary Care Provider] -
[2024-09-28 16:16] LABS: Basophils # (auto) 0.08 K/uL (0.00-0.20); Basophils % (auto) 1.6 %; Eosinophils # (auto) 0.07 K/uL (0.00-0.50); Eosinophils % (auto) 1.4 %; Hematocrit (blood only) 40.1 % (37.0-47.0); Hemoglobin 14.1 g/dl (12.0-16.0); Immature Granulocytes # (auto) 0.01 K/uL (0.01-0.20); Immature Granulocytes % (auto) 0.2 %; Lymphocytes # (auto) 2.38 K/uL (1.20-3.40); Lymphocytes % (auto) 46.2 %; Mean Corpuscular Hemoglobin 35.2 pg (25.0-34.0); Mean Corpuscular Hgb Conc 35.2 g/dL (32.0-36.0); Mean Platelet Volume 10.9 fL (9.4-12.4); Monocytes # (auto) 0.47 K/uL (0.11-0.59); Monocytes % (auto) 9.1 %; Neutrophils # (auto) 2.14 K/uL (1.40-6.50); Neutrophils % (auto) 41.5 %; Platelet Count 81 K/uL (130-400); RDW Coefficient of Variation 11.5 % (11.5-14.5); RDW Standard Deviation 42.4 fL (36.4-46.3); Red Blood Count 4.01 M/uL (4.20-5.40); White Blood Count 5.15 K/ul (4.8-10.8)
[2024-09-28 16:24] LABS: Albumin Globulin Ratio 1.2 (0.9-2); BUN Creatinine Ratio 4.4 (10-20); Creatinine Clr Calc Pharmacy 143.1 ml/min; Globulin 3.4 gm/dl (2.5-4.0); Potassium 3.7 mmol/L (3.5-5.1); Total Protein 7.4 gm/dl (6.0-8.3)
[2024-09-28] MEDS: SODIUM CHLORIDE 0.9% 1,000 ML IV SCH (16:24)
[2024-09-28] MEDS: ONDANSETRON INJ 2 MG/ML 2 ML VIAL IV STA (16:24)
[2024-09-28] MEDS: OPTIRAY 320 100ml IV ONE (16:42)
[2024-09-28 16:43] LABS: Magnesium 1.6 mg/dl (1.7-2.4)
--- NOTE | 2024-09-28 16:59 | CT Scan Report ---
EXAMINATION: Abdomen and pelvis CT with CLINICAL HISTORY: Here for alcohol detox last 24 hours ago, vomiting every day for 8 weeks. Abdominal pain. PRIORS: 05/08/2024 TECHNIQUE: Contiguous axial images were obtained through the abdomen and pelvis with the use of intravenous contrast. Sagittal and coronal reformations are supplied. FINDINGS: Mild hypoventilatory changes at the lung bases. Calcified granuloma present in the right lower lobe. Fatty infiltration of the liver noted. Liver is enlarged with mildly nodular capsule with appearance of hepatic cirrhosis. No discrete enhancing mass. Gallbladder surgically absent. Portal vein is patent. Spleen is not enlarged. Stomach is under distended with no extraluminal gas or surrounding inflammatory change. The pancreas, spleen, adrenals, aorta and IVC are morphologically unremarkable. Mild-moderate atherosclerotic disease of the abdominal aorta. No hemoperitoneum or ascites. An intrauterine device noted in the central uterus not further localized. The kidneys enhance symmetrically no obstructing renal calculus or hydronephrosis. A phlebolith is present adjacent to the distal right ureter on image 247, series 3, not within the ureter. Colon is under distended. No pericolonic inflammatory change. No dilated loops of bowel. Urinary bladder distended and morphologically unremarkable. No pelvic sidewall adenopathy. No free fluid in the pelvis. No adenopathy in the abdomen. In bone windows no acute osseous abnormality. IMPRESSION: 1. No CT evidence of an acute abdominal or pelvic abnormality. 2. Hepatic cirrhosis and fatty infiltration of the liver. Spleen is normal in size. Electronically signed by Inez Duarte 09-28-2024 4:59 PM
[2024-09-28] MEDS: MAGNESIUM SULFATE / D5W 1 GM/100 ML BAG IV SCH ×2 (18:03→21:31)
--- NOTE | 2024-09-28 18:31 | History & Physical Report ---
Date of Service September 28, 2024 Assessment & Plan (1) Alcohol intoxication in alcoholism with blood level over 0.3 with complication: (2) Alcohol abuse: (3) Thrombocytopenia: (4) Hypomagnesemia: (5) Alcohol withdrawal: (6) Hypothyroidism: (7) Hypertension: (8) Alcoholic cirrhosis of liver: Plan Patient 44-year-old female with known alcohol dependence presents to the emergency room intoxicated requesting alcohol withdrawal. She has laboratory abnormalities consistent with chronic alcohol use. Admit to a monitored unit in the hospital Start gabapentin taper to minimize withdrawal symptoms As needed IV/p.o. Ativan to manage withdrawal symptoms Replace magnesium Replace potassium Check TSH, continue Synthroid Continue lisinopril for hypertension management Monitor laboratory studies, LFTs elevated due to her cirrhosis and alcohol use, thrombocytopenia due to alcohol use Case management to provide patient with most up-to-date resources for her alcohol dependence Extensive bedside conversation with the patient that she needs to take ownership of scheduling her rehab if she does not want to go to an inpatient rehab and committing to abstinence. History of Present Illness Chief Complaint: Alcohol intoxication and dependence requesting detox Primary Care Provider: Anupam Mi MD Patient 44-year-old female with a long history of alcohol dependence. Was in [facility] in April early May 2024 for alcohol induced pancreatitis, alcohol intoxication and withdrawal. She reports she did fairly well with abstinence up until the holidays. During the holidays she had some increased stressors and started drinking again. She pretty much exclusively drinks beer. 15-20 beers per day. Came to the emergency room today seeking detox. In the emergency room was noted to have some electrolyte abnormalities and was still intoxicated. She reports she drank about 5 cans of beer 4 hours prior to presenting to the emergency department. 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 Time my evaluation patient is resting comfortably in the ED. But is starting to have some tremors and feeling some anxiety of withdrawal already. She denies any fever or chills. No cough or cold symptoms. No chest pain or shortness of breath. No new problems with bowels or bladder. No new swelling in her hands arms legs or feet. She is committed to detoxing. She reports that she had a period of time when she was absent for about 4 years. She is hesitant to go into inpatient rehab again but as of today is committed to doing intensive outpatient rehab. Allergies Allergy/AdvReac Type Severity Reaction Status Date / Time No Known Allergies Allergy Unverified 09/28/24 17:42 Home Medications Medication Instructions Recorded Confirmed Type levothyroxine 50 mcg tablet 50 mcg PO QAM 05/08/24 09/28/24 History lisinopril 20 mg tablet 20 mg PO QAM 05/08/24 09/28/24 History esomeprazole magnesium 20 mg 20 mg PO DAILY 09/28/24 09/28/24 History capsule,delayed release (Nexium) multivitamin 1 tab PO DAILY 09/28/24 09/28/24 History Past Med/Surg History Problem List (Updated 09/28/24 @ 18:29 by Fritz Pena DO) Alcoholic cirrhosis of liver Alcohol intoxication in alcoholism with blood level over 0.3 with complication Alcohol abuse Thrombocytopenia Neutropenia Smoker Epigastric abdominal pain (Acute) Cough (Acute) Pancreatitis (Acute) Vomiting (Acute) Hypomagnesemia (Acute) Alcohol withdrawal (Acute) Hypothyroidism Hypertension Acute pancreatitis Medical History Alcohol withdrawal Social History Smoking Status: Current every day smoker Tobacco Type: Cigarettes Second Hand Exposure: Yes; Do You Dip or Chew Tobacco: No; Hx Alcohol Use: Yes Alcohol type: beer Hx Substance Use: Yes Last Used Substance: Unknown Last Used Substance Other:: states has not used any substances Preferred Language: Burmese Communication Ability: Effective Taxi Truck Driver Required: No Beliefs That Will Affect Care: None Current Living Situation: Other Feels Safe at Home: Yes Assistive Devices: None Review of Systems Review of Systems: Pertinent positive and negative review of systems as mentioned in the HPI Physical Exam Physical Exam: Constitutional: Alert, nontoxic, tremulous HEENT: Mucous membranes moist. Sclera clear Neck: Soft, no adenopathy Lungs: Clear to auscultation, decreased, no wheezes rales or rhonchi CV: S1-S2, regular Abdomen: Soft, nontender, nondistended Extremities: No significant edema Musculoskeletal: No significant joint tenderness Neuro: No focal deficits Psych: Cooperative, anxious Results & Data Results & Data Vital Signs (Past 12 Hours) Vital Signs Temp Pulse Resp BP Pulse Ox O2 Del Method 03/20/25 18:03 78 15 108/76 95 09/28/24 17:03 82 21 124/90 95 09/28/24 17:00 124/90 09/28/24 17:00 124/90 09/28/24 17:00 82 13 124/90 97 09/28/24 16:54 84 09/28/24 16:48 114/81 09/28/24 15:10 36.8 C 95 H 18 136/93 95 Room Air Diagnostic Findings Reviewed imaging, laboratory and diagnostic studies. Pertinent findings as below. Alcohol level 331.4 AST 124 ALT 57 Magnesium 1.4 Creatinine 0.45 Potassium 3.7 Sodium 134 Hemoglobin 14.1 WBCs 5.1 Platelets 81
[2024-09-28] MEDS ORDERED: GABAPENTIN 1200MG ALCOHOL WITHDRAWAL LOAD PO STA (21:13)
[2024-09-28] MEDS ORDERED: Ativan PO Alcohol Withdrawal--Active Protocol PO PRN (21:13)
[2024-09-28] MEDS ORDERED: ALUMINUM/MAGNESIUM SUSP 30 ML UDC PO PRN (21:13)
[2024-09-28] MEDS ORDERED: LORazepam 1 MG TAB PO PRN ×3 (21:13)
[2024-09-28] MEDS: ONDANSETRON INJ 2 MG/ML 2 ML VIAL IV PRN (21:30)
[2024-09-28] MEDS: POTASSIUM CHLORIDE CRTAB 20 MEQ TABCR PO STA (21:30)
[2024-09-28] MEDS: LORazepam 2 MG/1 ML VIAL IV PRN (21:31)
[2024-09-28] MEDS: GABAPENTIN 600 MG TAB PO ONE (21:41)
[2024-09-28] MEDS: FOLIC ACID 1 MG TAB PO SCH (21:41)
[2024-09-28] MEDS: THIAMINE HCL 100 MG TAB PO SCH (21:42)
[2024-09-29] MEDS: GABAPENTIN 600 MG TAB PO SCH (01:32)
--- OUTSIDE RECORDS SUMMARY | 2024-09-29 03:23 | External Medical Summary | Summary of Care ---
Author Name Unknown Organization [facility] Address [address] [facility] [place] [address] Phone [phone] Care Team Providers Care Filters Assembler Name Role Phone Unavailable Primary Care Provider Unavailabl e Reason for Visit * Reason Onset Date Comments No Show 05/26/2024 [facility] No Show Auto mation Encounter Details Date Type Department Care Team (Late st Contact Info) Description 05/26/2024 Telephone Family Medicine [address] [place] [id number] Lokesh Mi MD [address] [place] [address] [place] [id number] No Show ([place] No Show Automation) Allergies No known active allergiesdocumented as of this encounter (statuses as of 05/26/2024) Medications Lisinopril 20 MG Oral Tablet (Prinivil)Indic ations:HTN, goal below 130/80 Take 1 Tablet by mouth in the morning. 30 Tablet 11 4 Active Levothyroxine Sodium 50 MCG Oral Tablet (Levoxyl)Indica tions:Hypothyro idism TAKE 1 TABLET BY MOUTH IN THE MORNING. (AT LEAST 30 MIN PRIOR TO BREAKFAST OR OTHER MEDS). 90 Tablet 1 4 Active documented as of this encounter (statuses as of 05/26/2024) Active Problems Problem Noted Date Diagnosed Date Other specified hypothyroidism 10/11/2023 documented as of this encounter (statuses as of 05/26/2024) Social History Tobacco Use Types Packs/Day Years [...] years and over) Not on file 12/28/2023 Comments Unknown Sex and Gender Information Value Date Recorded Sex Assigned at Female 10/24/2023 6:35 PM EDT Legal Sex Female 4:19 PM EST Gender Identity Not on file Sexual Orientation Straight 10/24/2023 6: 35 PM EDT documented as of this encounter Miscellaneous Notes * Telephone Encounter - [facility], No Show - 05/26/2024 3:10 PM EST Dear Stefani Yo, Looks like you missed an appointment with LOKESH MI on 05/16/2024 at 02:20 PM. If you haven't already rescheduled, you have a couple of options: Reschedule in [email or web address] Call us at [phone] Can't make a future appointment? Cancel and let someone else have your spot! It's easy to do via [employer]switch or by calling us. Thanks for trusting [facility] with your care. We hope to see you back in our office soon. Sincerely, LOKESH MI documented in this encounter Plan of Treatment Upcoming Encounters Date Type Department Care Team (Late st Contact Info) Description 10/16/2024 3:00 PM EDT Office Visit Gynecology/Obstetrics [facility] [address] [place] [id number] Rita Prado PA-C [address] [place] [address] Health Maintenance Due Date Last Done Comments [...] Blood Test 01/22/2024 Sigmoidoscopy 01/22/2024 COVID-19 Vaccine (1 - 2023-2 5 season) 2024 Influenza Vaccine [...]
--- OUTSIDE RECORDS SUMMARY | 2024-09-29 03:23 | External Medical Summary | Summary of Care ---
Author Name Unknown Organization [facility] Address [address] [place] [address] Phone [phone] Care Team Providers Care Rn Chronic Name Role Phone Unavailable Primary Care Provider Unavailabl e Encounter Details Date Type Department Care Team (Late st Contact Info) Description 05/10/2024 Population Health External Data Unspecified Department Allergies No known active allergiesdocumented as of this encounter (statuses as of 05/10/2024) Medications Medication Sig Dispensed Refills Start Date End Date Status Lisinopril 20 MG Oral Tablet (Prinivil)Indication s:HTN, goal below 130/80 Take 1 Tablet by mouth in the morning. 30 Tablet 11 10/11/2023 Active Levothyroxine Sodium 50 MCG Oral Tablet (Levoxyl)Indications :Hypothyroidism TAKE 1 TABLET BY MOUTH IN THE MORNING. (AT LEAST 30 MIN PRIOR TO BREAKFAST OR OTHER MEDS). 90 Tablet 1 05/02/2024 Active documented as of this encounter (statuses as of 05/10/2024) Active Problems Problem Noted Date Diagnosed Date Other specified hypothyroidism 10/11/2023 documented as of this encounter (statuses as of 05/10/2024) Social History Tobacco Use Types Packs/Day Years [...] on file documented as of this encounter Plan of Treatment Upcoming Encounters Date Type Department Care Team (Late st Contact Info) Description 10/16/2024 3:00 PM EDT Office Visit Gynecology/Obstetrics Bessy Nicolas [address] [place] [id number] Rita Prado PA-C [address] [place] [address] Health Maintenance Due Date Last Done Comments [...]
--- OUTSIDE RECORDS SUMMARY | 2024-09-29 03:23 | External Medical Summary | Summary of Care ---
Author Name Unknown Organization [facility] Address [address] [place] [address] Phone [phone] Care Team Providers Care Product Transfer Pumper Name Role Phone Unavailable Primary Care Provider Unavailabl e Encounter Details Date Type Department Care Team (Late st Contact Info) Description 07/31/2024 Population Health External Data Unspecified Department Allergies No known active allergiesdocumented as of this encounter (statuses as of 07/31/2024) Medications Lisinopril 20 MG Oral Tablet (Prinivil)Indic [...] as of this encounter (statuses as of 07/31/2024) Active Problems Problem Noted Date Diagnosed Date Other specified hypothyroidism 10/11/2023 documented as of this encounter (statuses as of 07/31/2024) Social History Tobacco Use Types Packs/Day Years [...] PM EDT documented as of this encounter Plan of Treatment Upcoming Encounters Date Type Department Care Team (Late st Contact Info) Description 10/16/2024 3:00 PM EDT Office Visit Gynecology/Obstetrics Bessy Nicolas [address] [place] [phone] Rita Prado PA-C [address] [place] [address] Health Maintenance Due Date Last Done Comments Diabetes Screening 1979 Lipid Panel 1979 Depression Screening 1991 HIV Screening 1994 Hepatitis C Screening 1997 TSH 1997 DTap/Tdap Vaccines (1 - Tdap) 1998 Hepatitis B Vaccine (1 of 3 - 19+ 3-dose series) 1998 Pneumococcal Vaccine: Pediat rics (0 to 5 Years) and At-Risk Patients (6 to 18 Years and 19+ Years) (1 of 2 - PCV) 1998 Pap Smear 01/22/2000 Cervical Cancer Screening [...]
[2024-09-29] MEDS: ACETAMINOPHEN 325 MG TAB PO PRN (04:31)
[2024-09-29] MEDS: LEVOTHYROXINE SODIUM 50 MCG TABLET PO SCH (05:00)
[2024-09-29 07:21] LABS: Hematocrit (blood only) 38.8 % (37.0-47.0); Hemoglobin 13.3 g/dl (12.0-16.0); Mean Corpuscular Hemoglobin 35.2 pg (25.0-34.0); Mean Corpuscular Hgb Conc 34.3 g/dL (32.0-36.0); Mean Corpuscular Volume 102.6 fL (80.0-100.0); Mean Platelet Volume 10.9 fL (9.4-12.4); Platelet Count 63 K/uL (130-400); RDW Coefficient of Variation 11.4 % (11.5-14.5); RDW Standard Deviation 43.7 fL (36.4-46.3); Red Blood Count 3.78 M/uL (4.20-5.40); White Blood Count 4.26 K/ul (4.8-10.8)
[2024-09-29 07:45] LABS: Albumin Level 3.6 gm/dl (3.4-5.0); BUN Creatinine Ratio 6.3 (10-20); Bilirubin Direct 0.5 mg/dl (0-0.2); Bilirubin,Total 1.8 mg/dl (0.2-1.0); Calcium 8.1 mg/dl (8.6-10.3); Creatinine Clr Calc Pharmacy 134.4 ml/min; Magnesium 2.3 mg/dl (1.7-2.4); Potassium 4.2 mmol/L (3.5-5.1); Total Protein 6.4 gm/dl (6.0-8.3)
[2024-09-29 07:47] LABS: Thyroid Stimulating Hormone 6.277 uIu/ml (0.300-4.500)
[2024-09-29] MEDS ORDERED: chlordiazePOXIDE ALCOHOL WITHDRAWL 25MG PO STA (08:21)
[2024-09-29 08:32] LABS: T4 Free Thyroxine 0.82 ng/dl (0.61-1.60)
[2024-09-29] MEDS: chlordiazePOXIDE HCl 25 MG CAP PO SCH (09:16)
[2024-09-29] MEDS: MULTIVITAMIN TAB PO SCH (09:17)
[2024-09-29] MEDS: lisinopril 20 MG TAB PO SCH (09:17)
--- NOTE | 2024-09-29 09:20 | Hospitalist Progress Note ---
Date of Service September 29, 2024 Assessment & Plan (1) Alcohol intoxication in alcoholism with blood level over 0.3 with complication: (2) Alcohol abuse: (3) Thrombocytopenia: (4) Hypomagnesemia: (5) Alcohol withdrawal: (6) Hypothyroidism: (7) Hypertension: (8) Alcoholic cirrhosis of liver: Plan Patient 44-year-old female with known alcohol dependence presents to the emergency room intoxicated requesting alcohol withdrawal. She has laboratory abnormalities consistent with chronic alcohol use. Admit to a monitored unit in the hospital Start gabapentin taper to minimize withdrawal symptoms As needed IV/p.o. Ativan to manage withdrawal symptoms Replace magnesium Replace potassium Check TSH, continue Synthroid Continue lisinopril for hypertension management Monitor laboratory studies, LFTs elevated due to her cirrhosis and alcohol use, thrombocytopenia due to alcohol use Case management to provide patient with most up-to-date resources for her alcohol dependence Extensive bedside conversation with the patient that she needs to take ownership of scheduling her rehab if she does not want to go to an inpatient rehab and committing to abstinence. 09/29 Alcohol Withdrawal transition from Gabapentin to Librium taper continue Ativan PRN continue alcohol withdrawal Protocol HTN continue Lisinopril Hypothyroidism TSH 6.2--> elevated Free T4 0.82 repeat in 4-6 weeks after acute episode GERD PRN Zofran, and Protonix IV DVT prophylaxis SCDs Admission and Anticipated Discharge Date Admission Date: September 28, 2024 Subjective ff up for alcohol withdrawal, etc seen resting in bed, sitting up, not in distress states she is having some tremors and nausea no chest pain, dyspnea, palpitations, dizziness, headache no hallucinations, sweating no other symptoms Review of Systems Review of Systems: all noted and negative except for above Physical Exam Physical Exam: General- oriented x 3, not in distress, speaks in sentences with no effort or accessory muscle use Eyes- anicteric Neck- no JVD Lungs- clear breath sounds bilaterally, no rales/wheezes Heart- normal rate, regular rhythm; no murmurs Abdomen- normal bowel sounds, nondistended, soft, nontender Extremities- no pretibial edema, no calf tenderness (+) mild hand tremors Neuro- alert, oriented x 3; no gross focal neurologic deficits Skin- warm & dry Results & Data Results & Data Vital Signs (Past 12 Hours) Vital Signs Temp Pulse Pulse Pulse Resp BP Pulse Ox 09/29/24 07:36 36.7 C 80 18 121/81 91 09/29/24 07:29 81 09/29/24 03:00 36.8 C 79 16 127/86 92 09/28/24 23:48 37 C 77 16 117/71 94 09/28/24 22:03 74 O2 Del Method 09/29/24 07:36 Room Air 09/29/24 07:29 09/29/24 03:00 Room Air 09/28/24 23:48 Room Air 09/28/24 22:03 all noted and reviewed including below
[2024-09-29] MEDS: ONDANSETRON INJ 2 MG/ML 2 ML VIAL IV STA (09:26)
[2024-09-29] MEDS: PANTOprazole 40 MG/10 ML SYR IV SCH (10:07)
[2024-09-29] MEDS: SODIUM CHLORIDE 0.9% 1,000 ML IV SCH (12:47)
[2024-09-29] MEDS ORDERED: GABAPENTIN 600 MG TAB PO SCH (16:00)
--- NOTE | 2024-09-29 20:35 | Electrocardiogram Report ---
Test Reason : Blood Pressure : */* mmHG Vent. Rate : 86 BPM Atrial Rate : 86 BPM P-R Int : 148 ms QRS Dur : 84 ms QT Int : 382 ms P-R-T Axes : 39 13 0 degrees QTcB Int : 457 ms Normal sinus rhythm Nonspecific ST abnormality When compared with ECG of 08-May-2024 08:48, Nonspecific T wave abnormality no longer evident in Lateral leads Confirmed by Gerardo Rich ([id number]) on 09/29/2024 8:35:26 PM Referred By: REFERRED SELF Confirmed By: Gerardo Rich
[2024-09-29] MEDS: PANTOprazole 40 MG TAB PO SCH (22:01)
[2024-09-30 08:40] LABS: Basophils # (auto) 0.04 K/uL (0.00-0.20); Basophils % (auto) 0.9 %; Eosinophils # (auto) 0.15 K/uL (0.00-0.50); Eosinophils % (auto) 3.3 %; Hematocrit (blood only) 35.1 % (37.0-47.0); Hemoglobin 11.8 g/dl (12.0-16.0); Immature Granulocytes # (auto) 0.01 K/uL (0.01-0.20); Immature Granulocytes % (auto) 0.2 %; Lymphocytes # (auto) 1.64 K/uL (1.20-3.40); Lymphocytes % (auto) 36.4 %; Mean Corpuscular Hemoglobin 35.1 pg (25.0-34.0); Mean Corpuscular Hgb Conc 33.6 g/dL (32.0-36.0); Mean Corpuscular Volume 104.5 fL (80.0-100.0); Monocytes # (auto) 0.38 K/uL (0.11-0.59); Monocytes % (auto) 8.4 %; Neutrophils # (auto) 2.28 K/uL (1.40-6.50); Neutrophils % (auto) 50.8 %; Platelet Count 55 K/uL (130-400); RDW Coefficient of Variation 11.4 % (11.5-14.5); RDW Standard Deviation 43.9 fL (36.4-46.3); Red Blood Count 3.36 M/uL (4.20-5.40)
[2024-09-30 08:56] LABS: BUN Creatinine Ratio 11.1 (10-20); Calcium 8.4 mg/dl (8.6-10.3); Creatinine Clr Calc Pharmacy 121.4 ml/min; Magnesium 1.6 mg/dl (1.7-2.4); Phosphorus 2.8 mg/dl (2.5-4.9); Potassium 3.6 mmol/L (3.5-5.1)
[2024-09-30 09:10] LABS: Albumin Level 3.4 gm/dl (3.4-5.0); Bilirubin Direct 0.4 mg/dl (0-0.2); Bilirubin,Total 1.3 mg/dl (0.2-1.0); Total Protein 5.9 gm/dl (6.0-8.3)
[2024-09-30] MEDS: chlordiazePOXIDE HCl 25 MG CAP PO SCH (13:51)
[2024-09-30] MEDS: NICOTINE 21 MG/24 HR TDSY TD SCH (13:52)
--- NOTE | 2024-09-30 16:09 | Hospitalist Progress Note ---
Date of Service September 30, 2024 Assessment & Plan (1) Alcohol intoxication in alcoholism with blood level over 0.3 with complication: (2) Alcohol abuse: (3) Thrombocytopenia: (4) Hypomagnesemia: (5) Alcohol withdrawal: (6) Hypothyroidism: (7) Hypertension: (8) Alcoholic cirrhosis of liver: Plan Patient 44-year-old female with known alcohol dependence presents to the emergency room intoxicated requesting alcohol withdrawal. She has laboratory abnormalities consistent with chronic alcohol use. Admit to a monitored unit in the hospital Start gabapentin taper to minimize withdrawal symptoms As needed IV/p.o. Ativan to manage withdrawal symptoms Replace magnesium Replace potassium Check TSH, continue Synthroid Continue lisinopril for hypertension management Monitor laboratory studies, LFTs elevated due to her cirrhosis and alcohol use, thrombocytopenia due to alcohol use Case management to provide patient with most up-to-date resources for her alcohol dependence Extensive bedside conversation with the patient that she needs to take ownership of scheduling her rehab if she does not want to go to an inpatient rehab and committing to abstinence. 09/29 Alcohol Withdrawal transition from Gabapentin to Librium taper continue Ativan PRN continue alcohol withdrawal Protocol 09/30 Stable overall PEGGY score mostly 6 No overt signs of DTs Continue present regimen HTN Stable overall continue Lisinopril Hypothyroidism TSH 6.2--> elevated Free T4 0.82 repeat in 4-6 weeks after acute episode GERD PRN Zofran, and Protonix IV DVT prophylaxis SCDs Admission and Anticipated Discharge Date Admission Date: September 28, 2024 Subjective Follow-up for alcohol withdrawal, etc. Seen sitting up in bed, comfortable, not in distress, awake and alert, oriented x 3, states she feels better today than yesterday Less tremors today Denies hallucinations, confusion, sweats Appetite is fair Denies other symptoms Review of Systems Review of Systems: all noted and negative except for above Physical Exam Physical Exam: General- oriented x 3, not in distress, speaks in sentences with no effort or accessory muscle use Eyes- anicteric Neck- no JVD Lungs- clear breath sounds bilaterally, no rales/wheezes Heart- normal rate, regular rhythm; no murmurs Abdomen- normal bowel sounds, nondistended, soft, nontender Extremities- no pretibial edema, no calf tenderness No tremors Neuro- alert, oriented x 3; no gross focal neurologic deficits Skin- warm & dry Results & Data Results & Data Vital Signs (Past 12 Hours) Vital Signs Temp Pulse Pulse Resp BP BP Pulse Ox 09/30/24 15:16 36.8 C 70 16 132/87 98 09/30/24 11:31 36.6 C 67 18 126/87 97 09/30/24 09:38 80 09/30/24 07:03 36.6 C 67 16 130/90 97 O2 Del Method 09/30/24 15:16 Room Air 09/30/24 11:31 Room Air 09/30/24 09:38 09/30/24 07:03 Room Air all noted and reviewed including below
[2024-09-30] MEDS: MAGNESIUM SULFATE / D5W 1 GM/100 ML BAG IV ONE (18:09)
[2024-09-30] MEDS ORDERED: GABAPENTIN 600 MG TAB PO SCH (20:00)
--- NOTE | 2024-10-01 12:56 | Hospitalist Progress Note ---
Date of Service October 01, 2024 Assessment & Plan (1) Alcohol intoxication in alcoholism with blood level over 0.3 with complication: (2) Alcohol abuse: (3) Thrombocytopenia: (4) Hypomagnesemia: (5) Alcohol withdrawal: (6) Hypothyroidism: (7) Hypertension: (8) Alcoholic cirrhosis of liver: Plan Patient 44-year-old female with known alcohol dependence presents to the emergency room intoxicated requesting alcohol withdrawal. She has laboratory abnormalities consistent with chronic alcohol use. Admit to a monitored unit in the hospital Start gabapentin taper to minimize withdrawal symptoms As needed IV/p.o. Ativan to manage withdrawal symptoms Replace magnesium Replace potassium Check TSH, continue Synthroid Continue lisinopril for hypertension management Monitor laboratory studies, LFTs elevated due to her cirrhosis and alcohol use, thrombocytopenia due to alcohol use Case management to provide patient with most up-to-date resources for her alcohol dependence Extensive bedside conversation with the patient that she needs to take ownership of scheduling her rehab if she does not want to go to an inpatient rehab and committing to abstinence. 09/29 Alcohol Withdrawal transition from Gabapentin to Librium taper continue Ativan PRN continue alcohol withdrawal Protocol 09/30 Stable overall PEGGY score mostly 6 No overt signs of DTs Continue present regimen 10/01 remains stable overall continue Librium taper will consult Psych for worsening anxiety HTN Stable overall continue Lisinopril Hypothyroidism TSH 6.2--> elevated Free T4 0.82 repeat in 4-6 weeks after acute episode GERD PRN Zofran, and Protonix IV DVT prophylaxis SCDs Disposition likely d/c home tomorrow patient prefers outpatient Alcohol Cessation program or 14 day-inpatient alcohol rehab Admission and Anticipated Discharge Date Admission Date: September 28, 2024 Subjective ff up for alcohol withdrawal, etc seen resting in bed, comfortable sitting up calm, not in distress states she feels improved overall tremors resolving no confusion, hallucinations, sweating states her anxiety has worsened lately which led to her drinking more denies depression, suicidal ideation no other symptoms Review of Systems Review of Systems: all noted and negative except for above Physical Exam Physical Exam: General- oriented x 3, not in distress, speaks in sentences with no effort or accessory muscle use Eyes- anicteric Neck- no JVD Lungs- clear breath sounds bilaterally, no rales/wheezes Heart- normal rate, regular rhythm; no murmurs Abdomen- normal bowel sounds, nondistended, soft, nontender Extremities- no pretibial edema, no calf tenderness no tremors Neuro- alert, oriented x 3; no gross focal neurologic deficits Skin- warm & dry Results & Data Results & Data Vital Signs (Past 12 Hours) Vital Signs Temp Pulse Pulse Resp BP BP Pulse Ox 10/01/24 11:41 36.6 C 83 16 109/74 98 10/01/24 08:41 36.5 C 79 18 142/91 H 97 10/01/24 08:00 70 10/01/24 04:03 36.5 C 80 18 140/98 98 O2 Del Method 10/01/24 11:41 Room Air 10/01/24 08:41 Room Air 10/01/24 08:00 10/01/24 04:03 Room Air all noted and reviewed including below
[2024-10-02] MEDS: LORazepam 2 MG/1 ML VIAL IV PRN (00:16)
[2024-10-02 07:59] VITALS: TEMP 97.7
[2024-10-02] MEDS ORDERED: GABAPENTIN 600 MG TAB PO SCH (09:00)
[2024-10-02 11:49] VITALS: RESP 18; O2SAT 98
--- NOTE | 2024-10-02 13:23 | Discharge Summary ---
Discharge Summary Date of Service October 02, 2024 delayed entry date of service noted above Principal Dx & Hospital Course #1 = Principal Diagnosis (1) Alcohol intoxication in alcoholism with blood level over 0.3 with complication: (2) Alcohol abuse: (3) Thrombocytopenia: (4) Hypomagnesemia: (5) Alcohol withdrawal: (6) Hypothyroidism: (7) Hypertension: (8) Alcoholic cirrhosis of liver: Plan Patient 44-year-old female with known alcohol dependence presents to the emergency room intoxicated requesting alcohol withdrawal. She has laboratory abnormalities consistent with chronic alcohol use. Alcohol Withdrawal transitioned from Gabapentin to Librium taper as patient drinking 10-15 beers/day remained Stable overall PEGGY score mostly 6 No overt signs of DTs patient prefers to do outpatient alcohol rehab extensive discussion held with patient re: alcohol cessation she verbalized understanding and agreement Liver Cirrhosis Fatty infiltration of the liver noted. Liver is enlarged with mildly nodular capsule with appearance of hepatic cirrhosis. No discrete enhancing mass. Gallbladder surgically absent. - likely from alcoholism LFTs mildly elevated but improving - refer to GI as outpatient - Further work up, management, and ff up as outpatient Pancytopenia - from alcoholism - repeat CBC on ff up with PCP and ff up closely Mild-moderate atherosclerotic disease of the abdominal aorta (+) smoking Further work up, management, and ff up as outpatient - consider Aspirin once Plt level within safe range, also Statin when LFTs are better HTN Stable overall continue Lisinopril Hypothyroidism, Subclinical TSH 6.2--> elevated Free T4 0.82 repeat in 4-6 weeks after acute episode Smoking cessation strongly advised Nicotine patch ordered GERD PRN Zofran, and Protonix IV DC home patient prefers outpatient Alcohol Cessation program or 14 day-inpatient alcohol rehab Notes For Next Care Provider refer to GI as outpatient for Liver Cirrhosis monitor LFTs Pancytopenia- repeat CBC on ff up with PCP and monitor closely repeat thyroid function test in 4-6 weeks for elevated tsh, normal T4 Medication Changes From Visit Librium x 2 more doses Folate, Thiamine Nicotine patch Admission HPI Per Admitting Provider Patient 44-year-old female with a long history of alcohol dependence. Was in [facility] in April early May 2024 for alcohol induced pancreatitis, alcohol intoxication and withdrawal. She reports she did fairly well with abstinence up until the holidays. During the holidays she had some increased stressors and started drinking again. She pretty much exclusively drinks beer. 15-20 beers per day. Came to the emergency room today seeking detox. In the emergency room was noted to have some electrolyte abnormalities and was still intoxicated. She reports she drank about 5 cans of beer 4 hours prior to presenting to the emergency department. 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 Time my evaluation patient is resting comfortably in the ED. But is starting to have some tremors and feeling some anxiety of withdrawal already. She denies an y fever or chills. No cough or cold symptoms. No chest pain or shortness of breath. No new problems with bowels or bladder. No new swelling in her hands arms legs or feet. She is committed to detoxing. She reports that she had a period of time when she was absent for about 4 years. She is hesitant to go into inpatient rehab again but as of today is committed to doing intensive outpatient rehab. Admission Exam Per Admitting Provider Constitutional: Alert, nontoxic, tremulous HEENT: Mucous membranes moist. Sclera clear Neck: Soft, no adenopathy Lungs: Clear to auscultation, decreased, no wheezes rales or rhonchi CV: S1-S2, regular Abdomen: Soft, nontender, nondistended Extremities: No significant edema Musculoskeletal: No significant joint tenderness Neuro: No focal deficits Psych: Cooperative, anxious Discharge Exam General- oriented x 3, not in distress, speaks in sentences with no effort or accessory muscle use Eyes- anicteric Neck- no JVD Lungs- clear breath sounds bilaterally, no rales/wheezes Heart- normal rate, regular rhythm; no murmurs Abdomen- normal bowel sounds, nondistended, soft, nontender Extremities- no pretibial edema, no calf tenderness no tremors Neuro- alert, oriented x 3; no gross focal neurologic deficits Skin- warm & dry Updated Medication List Medication Instructions Recorded Confirmed Type levothyroxine 50 mcg tablet 50 mcg PO QAM 05/08/24 09/28/24 History lisinopril 20 mg tablet 20 mg PO QAM 05/08/24 09/28/24 History esomeprazole magnesium 20 mg 20 mg PO DAILY 09/28/24 09/28/24 History capsule,delayed release (Nexium) multivitamin 1 tab PO DAILY 09/28/24 09/28/24 History chlordiazepoxide HCl 5 mg capsule 5 mg PO Q12H #2 caps 10/02/24 Rx folic acid 1 mg tablet 1 mg PO QAM 10 days #10 tabs 10/02/24 Rx nicotine 21 mg/24 hr daily 1 patch transdermal QAM 7 days #7 10/02/24 Rx transdermal patch (Nicoderm CQ) ea thiamine HCl (vitamin B1) 100 mg 100 mg PO QAM 10 days #10 tabs 10/02/24 Rx tablet Hospital Stay Data Consultations 09/28/24 18:01 ED Decision to Admit Stat 10/02/24 11:06 Consult Behavioral Health Liaison Routine Diagnostic Imagining Performed 09/28/24 15:57 CT abd pelvis IV con only Stat Laboratory Results WBC 4.50 K/ul (4.8-10.8) L 09/30/24 08:13 RBC 3.36 M/uL (4.20-5.40) L 09/30/24 08:13 Hgb 11.8 g/dl (12.0-16.0) L 09/30/24 08:13 Hct 35.1 % (37.0-47.0) L 09/30/24 08:13 MCV 104.5 fL (80.0-100.0) H 09/30/24 08:13 MCH 35.1 pg (25.0-34.0) H 09/30/24 08:13 MCHC 33.6 g/dL (32.0-36.0) 09/30/24 08:13 RDW Std Deviation 43.9 fL (36.4-46.3) 09/30/24 08:13 RDW Coeff of Yen 11.4 % (11.5-14.5) L 09/30/24 08:13 Plt Count 55 K/uL (130-400) L 09/30/24 08:13 MPV 12.0 fL (9.4-12.4) 09/30/24 08:13 Immature Gran % (Auto) 0.2 % 09/30/24 08:13 Neut % (Auto) 50.8 % 09/30/24 08:13 Lymph % (Auto) 36.4 % 09/30/24 08:13 [place] % (Auto) 8.4 % 09/30/24 08:13 Eos % (Auto) 3.3 % 09/30/24 08:13 Baso % (Auto) 0.9 % 09/30/24 08:13 Neut # (Auto) 2.28 K/uL (1.40-6.50) 09/30/24 08:13 Lymph # (Auto) 1.64 K/uL (1.20-3.40) 09/30/24 08:13 [place] # (Auto) 0.38 K/uL (0.11-0.59) 09/30/24 08:13 Eos # (Auto) 0.15 K/uL (0.00-0.50) 09/30/24 08:13 Baso # (Auto) 0.04 K/uL (0.00-0.20) 09/30/24 08:13 Immature Gran # (Auto) 0.01 K/uL (0.01-0.20) 09/30/24 08:13 Absolute Nucleated RBC Cancelled 09/29/24 05:35 Nucleated RBC % (auto) Cancelled 09/29/24 05:35 Platelet Estimate Cancelled 09/29/24 05:35 Sodium 136 mmol/L (136-145) 09/30/24 08:13 Potassium 3.6 mmol/L (3.5-5.1) 09/30/24 08:13 Chloride 105 mmol/L (98-107) 09/30/24 08:13 Carbon Dioxide 26 mmol/L (21-32) 09/30/24 08:13 Anion Gap 5 (3-11) 09/30/24 08:13 BUN 6 mg/dl (6-23) 09/30/24 08:13 Creatinine 0.54 mg/dl (0.6-1.2) L 09/30/24 08:13 Est Cr Clr Drug Dosing 121.4 ml/min 09/30/24 08:13 eGFR 115.63 09/30/24 08:13 BUN/Creatinine Ratio 11.1 (10-20) 09/30/24 08:13 Glucose 103 mg/dl (70-99(Fasting)) H 09/30/24 08:13 Calcium 8.4 mg/dl (8.6-10.3) L 09/30/24 08:13 Phosphorus 2.8 mg/dl (2.5-4.9) 09/30/24 08:13 Magnesium 1.6 mg/dl (1.7-2.4) L 09/30/24 08:13 Total Bilirubin 1.3 mg/dl (0.2-1.0) H 09/30/24 08:13 Direct Bilirubin 0.4 mg/dl (0-0.2) H 09/30/24 08:13 AST 57 U/L (13-39) H 09/30/24 08:13 ALT 36 U/L (7-52) 09/30/24 08:13 Alkaline Phosphatase 67 U/L (34-104) 09/30/24 08:13 Total Protein 5.9 gm/dl (6.0-8.3) L 09/30/24 08:13 Albumin 3.4 gm/dl (3.4-5.0) 09/30/24 08:13 Globulin 3.4 gm/dl (2.5-4.0) 09/28/24 15:49 Albumin/Globulin Ratio 1.2 (0.9-2) 09/28/24 15:49 Lipase 39 U/L (11-82) 09/28/24 15:49 TSH 6.277 uIu/ml (0.300-4.500) H 09/29/24 06:45 Free T4 0.82 ng/dl (0.61-1.60) 09/29/24 06:45 Ethyl Alcohol mg/dL 331.4 mg/dl (<10.0) H 09/28/24 15:41 Impressions Abdomen/Pelvis CT 09/28/24 15:57 EXAMINATION: Abdomen and pelvis CT with CLINICAL HISTORY: Here for alcohol detox last 24 hours ago, vomiting every day for 8 weeks. Abdominal pain. PRIORS: 05/08/2024 TECHNIQUE: Contiguous axial images were obtained through the abdomen and pelvis with the use of intravenous contrast. Sagittal and coronal reformations are supplied. FINDINGS: Mild hypoventilatory changes at the lung bases. Calcified granuloma present in the right lower lobe. Fatty infiltration of the liver noted. Liver is enlarged with mildly nodular capsule with appearance of hepatic cirrhosis. No discrete enhancing mass. Gallbladder surgically absent. Portal vein is patent. Spleen is not enlarged. Stomach is under distended with no extraluminal gas or surrounding inflammatory change. The pancreas, spleen, adrenals, aorta and IVC are morphologically unremarkable. Mild-moderate atherosclerotic disease of the abdominal aorta. No hemoperitoneum or ascites. An intrauterine device noted in the central uterus not further localized. The kidneys enhance symmetrically no obstructing renal calculus or hydronephrosis. A phlebolith is present adjacent to the distal right ureter on image 247, series 3, not within the ureter. Colon is under distended. No pericolonic inflammatory change. No dilated loops of bowel. Urinary bladder distended and morphologically unremarkable. No pelvic sidewall adenopathy. No free fluid in the pelvis. No adenopathy in the abdomen. In bone windows no acute osseous abnormality. IMPRESSION: 1. No CT evidence of an acute abdominal or pelvic abnormality. 2. Hepatic cirrhosis and fatty infiltration of the liver. Spleen is normal in size. Electronically signed by Inez Duarte 09-28-2024 4:59 PM Pending Results Patient Have Any Pending Studies at Discharge: No Discharge Instructions Given to Patient (Per Discharging Provider) PLEASE REFER TO YOUR NEW MEDICATION LIST AND FOLLOW INSTRUCTIONS CAREFULLY. YOUR NEW MEDICATIONS INCLUDE: Librium- for alcohol withdrawal, DO NOT consume alcohol while taking this medication Multivitamins, Folate, Thiamine- supplements for alcohol withdrawal Nicotine patch- for smoking cessation, DO NOT smoke while on this patch PLEASE CALL YOUR PRIMARY CARE PHYSICIAN OR RETURN TO THE ER IF WITH WORSENING OF SYMPTOMS, INCLUDING shaking, confusion, sweating, etc FOLLOW UP WITH PRIMARY CARE PHYSICIAN IN 1 WEEK OUTLINED ABOVE. Total Time Total Time Spent Total Time Spent (In Minutes): 45 mintues
[2024-10-02] MEDS: chlordiazePOXIDE HCl 5 MG CAP PO STA (14:48)
[2024-10-02 15:13] VITALS: BP 102/68; PULSE 92
[2024-10-02] MEDS ORDERED: chlordiazePOXIDE HCl 5 MG CAP PO SCH (18:00)
== END 2024-10-02 15:07 | disposition home or self-care (01) | DRG 897 ==
LOC: ED 15:04 → 2E 18:23 → SUATTDRO 18:23 → 2E 21:44
DX: Z79.899 Other long term (current) drug therapy; Z79.890 Hormone replacement therapy; K74.60 Unspecified cirrhosis of liver; F17.210 Nicotine dependence, cigarettes, uncomplicated; E03.9 Hypothyroidism, unspecified; Y90.9 Presence of alcohol in blood, level not specified; E83.42 Hypomagnesemia; F10.239 Alcohol dependence with withdrawal, unspecified; I10 Essential (primary) hypertension; F10.229 Alcohol dependence with intoxication, unspecified; K21.9 Gastro-esophageal reflux disease without esophagitis; D69.59 Other secondary thrombocytopenia

== ENCOUNTER 2025-02-17 13:53 | Inpatient (IN) ==
[2025-02-17] MEDS: PANTOprazole 40 MG/10 ML SYR IV ONE (14:44)
[2025-02-17] MEDS: LACTATED RINGER'S 500 ML IV ONE (14:44)
--- NOTE | 2025-02-17 14:45 | Emergency Department Note ---
Impression & Plan Alcoholic intoxication, Hypokalemia, Alcohol abuse ED Provider Note Provider: Darrin Mireles MD CHIEF COMPLAINT: Alcohol abuse HISTORY OF PRESENT ILLNESS: Patient is a 45-year-old female past medical history of alcohol abuse, alcoholic cirrhosis, pancreatitis, withdrawal seizures, hypertension presenting here today reporting she has been heavily drinking alcohol particularly vodka for months since her last hospitalization here in September. Patient states her last drink was about 90 minutes to 2 hours ago. States she gets shaky when she stops drinking. Reports a little lower abdominal discomfort today. Had a syncopal episode caught by her boyfriend earlier but did not fall to the ground. No other trauma history. No other drug use reported. Patient states he is interested in rehab services and wants to quit drinking. States several days ago she was seen at [facility] and was discharged there reportedly without intervention. Patient reports occasionally some nausea but not eating much food just mainly drinking alcohol. No leg swelling but maybe a little bit of abdominal swelling. No fevers reported or severe headache. No hallucinations reported. PAST MEDICAL HISTORY: As noted above MEDICATIONS: Reviewed home medication list SOCIAL HISTORY: History of alcohol abuse but denies drug use PHYSICAL EXAM: GENERAL: alert and oriented and at bedside does not appear particularly tremulous at this point Head: normocephalic and atraumatic EYES: No injection, discharge or icterus. PERRL, EOMI. NECK: Trachea midline. ENT: Mucous membranes pink and moist. LUNGS: Airway patent. No retractions. Breath sounds clear with good air entry bilaterally. HEART: Regular rate and rhythm. No chest wall tenderness ABDOMEN: Soft maybe some slight lower abdominal tenderness. No masses appreciable. SKIN: Acyanotic, warm, dry, without rashes EXTREMITIES: Without swelling, tenderness or deformity NEUROLOGICAL: No focal deficits. No aphasia. No facial droop maybe just some slightly slurred speech. Moving all extremities equally. Ambulatory. EK bpm normal sinus rhythm. No PVC or PAC. No acute ST segment elevation or depression with QTc of 438. CONTINUOUS CARDIAC MONITORING: was ordered and showed a heart rate of 70s to 90s bpm in normal sinus rhythm Patient's laboratory studies and imaging reviewed. Differential includes Appendicitis, ovarian cyst, ovarian torsion, ectopic , alcohol withdrawal, PE, infections, diverticulitis, UTI, obstruction, mesenteric ischemia, aortic pathology, inflammatory bowel disease, renal colic, PUD, pancreatitis, biliary pathology, hernia, volvulus, constipation, as well as other pathologies. IMPRESSION/MEDICAL DECISION MAKING: Patient significant history of alcohol withdrawal including seizures in the past. Will monitor closely for withdrawal though she is not osman withdrawal upon arrival. Last alcohol use was recent. Medical alcohol level electrolytes and LFTs INR sent. Given her complaint of some abdominal discomfort a CT scan of the abdomen pelvis was ordered in addition to blood work. No significant back pain or severe vomiting and low suspicion at this time for pancreatitis acutely. Given some IV fluid, thiamine, and Protonix here for symptoms. She does report a little bit heartburn symptoms. No reported symptoms concerning for GI bleed at this point. EKG and troponin is sent. She is not hypoxic or febrile here. Low suspicion for pneumonia or more systemic infection at this time. No significant lower extremity swelling I doubt fluid overload at this point. UA without evidence of infection. Not hypoglycemic. Alcohol does return elevated at 383. Undetectable salicylate and Tylenol levels. Chemistries with mild hypomagnesemia but no severe liver dysfunction or renal dysfunction noted. Mild hypokalemia 3.1. IV magnesium and potassium repletion ordered. Slight leukopenia is chronic without evidence of significant anemia or INR dysfunction. TSH within normal limits. CT of the abdomen pelvis without significant acute findings per radiology report. Did develop some nausea and vomiting given some Zofran here. Given the patient's significant history of alcohol abuse and withdrawal seizures and her wish for detox, she is agreeable with the plan to stay in the hospital for monitored detox until stable for rehab placement. Hospitalist team was consulted. She is started become a little bit shaking given small dose of Ativan here. DIAGNOSIS: Alcohol abuse with intoxication, nausea and vomiting, lower abdominal pain DISPOSITION: Hospitalist will evaluate Patient was agreeable with this plan. Past Med/Surg History Problem List (Updated 02/17/25 @ 17:13 by Fritz Pena DO) Interstitial lung abnormality present on imaging study Portal venous hypertension Hypokalemia (Acute) Alcoholic intoxication (Acute) Alcoholic cirrhosis of liver Alcohol intoxication in alcoholism with blood level over 0.3 with complication Alcohol abuse (Acute) Thrombocytopenia Neutropenia Smoker Epigastric abdominal pain (Acute) Cough (Acute) Pancreatitis (Acute) Vomiting (Acute) Hypomagnesemia (Acute) Alcohol withdrawal (Acute) Hypothyroidism Hypertension Acute pancreatitis Medical History Alcohol withdrawal Social History Smoking Status: Current every day smoker Tobacco Type: Cigarettes Second Hand Exposure: Yes; Do You Dip or Chew Tobacco: No; Hx Alcohol Use: Yes Alcohol type: beer Hx Substance Use: No Preferred Language: Romanian Communication Ability: Effective Chemists Required: No Beliefs That Will Affect Care: None Current Living Situation: Other Feels Safe at Home: Yes Assistive Devices: None Allergies Allergies Allergy/AdvReac Type Severity Reaction Status Date / Time No Known Allergies Allergy Unverified 09/28/24 17:42 Home Meds Home Medications Medication Instructions Recorded Confirmed levothyroxine 50 mcg tablet 50 mcg PO DAILYBB 05/08/24 02/17/25 multivitamin 1 tab PO DAILY 09/28/24 02/17/25 folic acid 1 mg tablet 1 mg PO QAM 02/17/25 02/17/25 hydroxyzine pamoate 50 mg capsule 50 mg PO HS 02/17/25 02/17/25 thiamine HCl (vitamin B1) 100 mg 100 mg PO QAM 02/17/25 02/17/25 tablet Results & Data (ED) Vital Signs Vital Signs - 24 hr 02/17/25 13:57 02/17/25 15:10 02/17/25 16:45 Temperature 36.5 C Temperature Source Temporal Artery Scan Pulse Rate 98 H 71 Pulse Rate from SpO2 Sensor 72 Respiratory Rate 19 16 Respiratory Effort / Characteristics Non-Labored Spontaneous Respiratory Depth Normal Blood Pressure 152/90 H 136/87 Blood Pressure Mean 110 103 Pulse Oximetry 96 96 96 Oxygen Delivery Method Room Air Room Air Sepsis Recent Fever Within 48 Hours No Sepsis New/Unexplained Change in Mental Status No Sepsis Action Taken by Nursing No Action Required Laboratory Data 02/17/25 14:40 02/17/25 14:40 Lab Results 02/17/25 02/17/25 02/17/25 Range/Units 14:13 14:15 14:40 WBC 3.95 L (4.8-10.8) K/ul RBC 3.72 L (4.20-5.40) M/uL Hgb 12.3 (12.0-16.0) g/dl Hct 36.2 L (37.0-47.0) % MCV 97.3 (80.0-100.0) fL MCH 33.1 (25.0-34.0) pg MCHC 34.0 (32.0-36.0) g/dL RDW Std Deviation 39.9 (36.4-46.3) fL RDW Coeff of Yen 11.3 L (11.5-14.5) % Plt Count 68 L (130-400) K/uL MPV 10.7 (9.4-12.4) fL Immature Gran % (Auto) 0.3 % Neut % (Auto) 26.0 % Lymph % (Auto) 53.2 % [place] % (Auto) 17.7 % Eos % (Auto) 1.0 % Baso % (Auto) 1.8 % Neut # (Auto) 1.03 L (1.40-6.50) K/uL Lymph # (Auto) 2.10 (1.20-3.40) K/uL [place] # (Auto) 0.70 H (0.11-0.59) K/uL Eos # (Auto) 0.04 (0.00-0.50) K/uL Baso # (Auto) 0.07 (0.00-0.20) K/uL Immature Gran # (Auto) 0.01 (0.01-0.20) K/uL PT 11.5 (9.0-12.0) Seconds INR 1.1 (0.9-1.1) APTT 29 (21-31) Seconds PTT Ratio 1.1 Sodium 142 (136-145) mmol/L Potassium 3.1 L (3.5-5.1) mmol/L Chloride 106 (98-107) mmol/L Carbon Dioxide 27 (21-32) mmol/L Anion Gap 9 (3-11) BUN 3 L (6-23) mg/dl Creatinine 0.61 (0.6-1.2) mg/dl Est Cr Clr Drug Dosing 107.7 ml/min eGFR 111.59 BUN/Creatinine Ratio 4.9 L (10-20) Glucose 125 H (70-99(Fasting)) mg/dl POC Glucose 147 H (70-99) mg/dl Calcium 8.3 L (8.6-10.3) mg/dl Magnesium 1.6 L (1.7-2.4) mg/dl Total Bilirubin 0.6 (0.2-1.0) mg/dl AST 45 H (13-39) U/L ALT 31 (7-52) U/L Alkaline Phosphatase 67 (34-104) U/L Total Creatine Kinase 159 (26-192) U/L Total Protein 7.0 (6.0-8.3) gm/dl Albumin 4.0 (3.4-5.0) gm/dl Globulin 3.0 (2.5-4.0) gm/dl Albumin/Globulin Ratio 1.3 (0.9-2) Lipase 28 (11-82) U/L TSH 3.365 (0.300-4.500) uIu/ml HCG, Qual Negative (Negative) Urine Color Yellow Urine Appearance Clear (Clear) Urine pH 7.0 (4.5-7.5) Ur Specific Bessie 1.006 (1.000-1.030) Urine Protein Negative (Negative) Urine Glucose (UA) Negative (Negative) Urine Ketones Negative (Negative) Urine Blood Negative (Negative) Urine Nitrite Negative (Negative) Urine Bilirubin Negative (Negative) Urine Urobilinogen Negative (Negative) Ur Leukocyte Esterase Negative (Negative) Urine Comment Salicylates < 3.0 L (3.0-30) mg/dl Urine Opiates Screen Neg (Neg) Ur Methadone, Qual Neg (Neg) Urine Fentanyl Screen Neg (Neg) Acetaminophen < 3 L (10-30) ug/ml Urine Barbiturates Neg (Neg) Ur Phencyclidine (PCP) Neg (Neg) U Amphetamin/Meth Scrn Neg (Neg) MDMA (Ecstasy) Screen Neg (Neg) U Benzodiazepines Scrn Neg (Neg) Ur Cocaine Metabolite Neg (Neg) U Marijuana (THC) Screen Neg (Neg) Ethyl Alcohol mg/dL 383.5 H (<10.0) mg/dl SARS-CoV-2, RNA, NAAT (NEGATIVE) 02/17/25 Range/Units 17:02 WBC (4.8-10.8) K/ul RBC (4.20-5.40) M/uL Hgb (12.0-16.0) g/dl Hct (37.0-47.0) % MCV (80.0-100.0) fL MCH (25.0-34.0) pg MCHC (32.0-36.0) g/dL RDW Std Deviation (36.4-46.3) fL RDW Coeff of Yen (11.5-14.5) % Plt Count (130-400) K/uL MPV (9.4-12.4) fL Immature Gran % (Auto) % Neut % (Auto) % Lymph % (Auto) % [place] % (Auto) % Eos % (Auto) % Baso % (Auto) % Neut # (Auto) (1.40-6.50) K/uL Lymph # (Auto) (1.20-3.40) K/uL [place] # (Auto) (0.11-0.59) K/uL Eos # (Auto) (0.00-0.50) K/uL Baso # (Auto) (0.00-0.20) K/uL Immature Gran # (Auto) (0.01-0.20) K/uL PT (9.0-12.0) Seconds INR (0.9-1.1) APTT (21-31) Seconds PTT Ratio Sodium (136-145) mmol/L Potassium (3.5-5.1) mmol/L Chloride (98-107) mmol/L Carbon Dioxide (21-32) mmol/L Anion Gap (3-11) BUN (6-23) mg/dl Creatinine (0.6-1.2) mg/dl Est Cr Clr Drug Dosing ml/min eGFR BUN/Creatinine Ratio (10-20) Glucose (70-99(Fasting)) mg/dl POC Glucose (70-99) mg/dl Calcium (8.6-10.3) mg/dl Magnesium (1.7-2.4) mg/dl Total Bilirubin (0.2-1.0) mg/dl AST (13-39) U/L ALT (7-52) U/L Alkaline Phosphatase (34-104) U/L Total Creatine Kinase (26-192) U/L Total Protein (6.0-8.3) gm/dl Albumin (3.4-5.0) gm/dl Globulin (2.5-4.0) gm/dl Albumin/Globulin Ratio (0.9-2) Lipase (11-82) U/L TSH (0.300-4.500) uIu/ml HCG, Qual (Negative) Urine Color Urine Appearance (Clear) Urine pH (4.5-7.5) Ur Specific Bessie (1.000-1.030) Urine Protein (Negative) Urine Glucose (UA) (Negative) Urine Ketones (Negative) Urine Blood (Negative) Urine Nitrite (Negative) Urine Bilirubin (Negative) Urine Urobilinogen (Negative) Ur Leukocyte Esterase (Negative) Urine Comment Salicylates (3.0-30) mg/dl Urine Opiates Screen (Neg) Ur Methadone, Qual (Neg) Urine Fentanyl Screen (Neg) Acetaminophen (10-30) ug/ml Urine Barbiturates (Neg) Ur Phencyclidine (PCP) (Neg) U Amphetamin/Meth Scrn (Neg) MDMA (Ecstasy) Screen (Neg) U Benzodiazepines Scrn (Neg) Ur Cocaine Metabolite (Neg) U Marijuana (THC) Screen (Neg) Ethyl Alcohol mg/dL (<10.0) mg/dl SARS-CoV-2, RNA, NAAT NEGATIVE (NEGATIVE) Administered Medications Enoxaparin Sodium (Enoxaparin Inj 40 Mg/0.4 Ml Syr) 40 mg SQ Q24H NITA Stop: 03/19/25 17:59 Last Admin: 02/17/25 18:09 Dose: 40 mg Documented By: ANTHONY Sodium Chloride (Nss) 500 mls @ 80 mls/hr IV .Q6H15M NITA Stop: 02/18/25 00:04 Last Infusion: 02/17/25 20:00 Dose: 125 mls/hr Documented By: Admin: 02/17/25 18:10 Dose: 80 mls/hr Documented By: ANTHONY Discontinued Medications Thiamine HCl 100 mg/ Syringe 10 mls @ 2 mls/min IV NOW STA Stop: 02/17/25 14:16 Last Admin: 02/17/25 16:22 Dose: 2 mls/min Documented By: GGG Lactated Ringer's (Lr) 500 mls @ 999 mls/hr IV .Q31M ONE Stop: 02/17/25 14:42 Last Infusion: 02/17/25 16:41 Dose: Infused Documented By: Admin: 02/17/25 14:44 Dose: 999 mls/hr Documented By: BCDinesh Pantoprazole Sodium (Protonix) 40 mg in 10 mls @ 5 mls/min IV NOW ONE Stop: 02/17/25 14:13 Last Admin: 02/17/25 14:44 Dose: 5 mls/min Documented By: JOANNA Potassium Chloride (K Elliot / Wtr) 10 meq in 100 mls @ 100 mls/hr IV ONE ONE Stop: 02/17/25 16:37 Last Infusion: 02/17/25 16:56 Dose: Infused Documented By: Admin: 02/17/25 15:49 Dose: 100 mls/hr Documented By: RALPH Magnesium Sulfate/Dextrose (Magnesium Sulfate / D5w) 1 gm in 100 mls @ 100 mls/hr IV NOW STA Stop: 02/17/25 16:37 Last Infusion: 02/17/25 16:56 Dose: Infused Documented By: Admin: 02/17/25 15:46 Dose: 100 mls/hr Documented By: RALPH Magnesium Sulfate/Dextrose (Magnesium Sulfate / D5w) 1 gm in 100 mls @ 100 mls/hr IV Q1H NITA Stop: 02/17/25 18:36 Last Infusion: 02/17/25 19:43 Dose: Infused Documented By: Admin: 02/17/25 18:07 Dose: 100 mls/hr Documented By: Infusion: 02/17/25 18:02 Dose: Infused Documented By: Admin: 02/17/25 16:56 Dose: 100 mls/hr Documented By: ANTHONY Potassium Chloride (K Elliot / Wtr) 10 meq in 100 mls @ 100 mls/hr IV Q1H NITA Stop: 02/17/25 19:44 Last Infusion: 02/17/25 20:13 Dose: 80 mls/hr Documented By: Admin: 02/17/25 19:49 Dose: 100 mls/hr Documented By: Infusion: 02/17/25 19:43 Dose: Infused Documented By: [facility] Admin: 02/17/25 18:08 Dose: 100 mls/hr Documented By: Infusion: 02/17/25 18:02 Dose: Infused Documented By: Admin: 02/17/25 16:56 Dose: 100 mls/hr Documented By: ANTHONY Ioversol (Optiray 320 100ml) 90 ml IV ONCE ONE Stop: 02/17/25 15:33 Last Admin: 02/17/25 15:33 Dose: 90 ml Documented By: JOSE MANUEL Lorazepam (Lorazepam 1 Mg/1 Ml Syr Ed Inj Use) 1 mg IV ONE STA Stop: 02/17/25 16:17 Last Admin: 02/17/25 16:26 Dose: 1 mg Documented By: RALPH Ondansetron HCl (Ondansetron Inj 2 Mg/Ml 2 Ml Vial) 4 mg IV NOW STA Stop: 02/17/25 16:11 Last Admin: 02/17/25 16:12 Dose: 4 mg Documented By: RALPH Phenobarbital (Phenobarbital Po Alcohol Withdrawal) 1 each PO NOW STA; Protocol Stop: 02/17/25 17:51 Last Admin: 02/17/25 18:09 Dose: Not Given Documented By: ANTHONY Phenobarbital Sodium (Phenobarbital Sodium 130 Mg/Ml Vial) 260 mg IM NOW STA Stop: 02/17/25 17:51 Last Admin: 02/17/25 18:08 Dose: 260 mg Documented By: ANTHONY Potassium Chloride (Potassium Chloride Crtab 20 Meq Tabcr) 40 meq PO NOW STA Stop: 02/17/25 17:51 Last Admin: 02/17/25 18:08 Dose: 40 meq Documented By: ANTHONY Imaging Data Radiologist's Impression: Abdomen/Pelvis CT 02/17/25 14:12 EXAMINATION: Abdomen and pelvis CT with CLINICAL HISTORY: Lower abdominal pain PRIORS: 09/28/2024 TECHNIQUE: Contiguous axial images were obtained through the abdomen and pelvis with the use of intravenous contrast. Sagittal and coronal reformations are supplied. FINDINGS: Mild bibasilar subpleural reticular change suggesting interstitial lung disease. Right lower calcified granuloma. Fatty infiltration of the liver noted. Liver is enlarged with mildly nodular capsule with appearance of hepatic cirrhosis. No discrete enhancing mass. Recanalization of the periumbilical vein, with dilated draining varicosities extending into the pelvis into the right periuterine vessels. Gallbladder surgically absent. Portal vein is patent. Spleen is not enlarged. Stomach is under distended with no extraluminal gas or surrounding inflammatory change. The pancreas, spleen, adrenals, aorta and IVC are morphologically unremarkable. Mild-moderate atherosclerotic disease of the abdominal aorta. No hemoperitoneum or ascites. No free air. An intrauterine device noted in the central uterus. The kidneys enhance symmetrically no obstructing renal calculus or hydronephrosis. A phlebolith is present adjacent to the distal right ureter. Colon is under distended. No pericolonic inflammatory change. No dilated loops of bowel. Urinary bladder distended and morphologically unremarkable. No pelvic sidewall adenopathy. No free fluid in the pelvis. No adenopathy in the abdomen. No acute bony abnormality. IMPRESSION: 1. No acute finding in the abdomen or pelvis. 2. Hepatic cirrhosis and fatty infiltration of the liver, with evidence of portal hypertension, including recanalization of the periumbilical vein, draining into right periuterine vessels. 3. Mild bibasilar, peripheral predominant interstitial lung disease. Electronically signed by Gerardo Lackey 02-17-2025 4:07 PM Discharge Plan Visit Data Chief Complaint: Detox Request Stated Complaint: ALCOHOL DETOX ED Provider: Darrin Mireles Discharge Problem: Alcoholic intoxication, Hypokalemia, Alcohol abuse Patient Disposition: Being Evaluated by Hospitalist Condition: Fair Discharge Instructions Interventions: ED Discharge Assessment Last Done: 02/17/25 17:50
[2025-02-17 15:00] LABS: Appearance Urine Clear (Clear); Glucose Urine UA Negative (Negative)
[2025-02-17 15:14] LABS: Pregnancy Test, Serum Negative (Negative)
[2025-02-17 15:18] LABS: Alanine Aminotransferase 31.0 U/L (7-52); Albumin Globulin Ratio 1.3 (0.9-2); Alkaline Phosphatase 67.0 U/L (34-104); Anion Gap 9.0 (3-11); Bilirubin,Total 0.6 mg/dl (0.2-1.0); Blood Urea Nitrogen 3.0 mg/dl (6-23); Calcium 8.3 mg/dl (8.6-10.3); Carbon Dioxide 27.0 mmol/L (21-32); Chloride 106.0 mmol/L (98-107); Creatine Kinase 159.0 U/L (26-192); Creatinine Clr Calc Pharmacy 107.7 ml/min; Globulin 3.0 gm/dl (2.5-4.0); Glucose 125.0 mg/dl (70-99(Fasting)); Lipase 28.0 U/L (11-82); Magnesium 1.6 mg/dl (1.7-2.4); Potassium 3.1 mmol/L (3.5-5.1); Sodium 142.0 mmol/L (136-145); Total Protein 7.0 gm/dl (6.0-8.3)
[2025-02-17 15:29] LABS: Acetaminophen < 3 ug/ml (10-30); Salicylate < 3.0 mg/dl (3.0-30)
[2025-02-17] MEDS: OPTIRAY 320 100ml IV ONE (15:33)
[2025-02-17 15:34] LABS: Thyroid Stimulating Hormone 3.365 uIu/ml (0.300-4.500)
[2025-02-17 15:35] LABS: INR 1.1 (0.9-1.1); Partial Thromboplastin Time 29 Seconds (21-31); Prothrombin Time 11.5 Seconds (9.0-12.0)
[2025-02-17 15:36] LABS: Hematocrit (blood only) 36.2 % (37.0-47.0); Hemoglobin 12.3 g/dl (12.0-16.0); Immature Granulocytes # (auto) 0.01 K/uL (0.01-0.20); Immature Granulocytes % (auto) 0.3 %; Mean Corpuscular Hemoglobin 33.1 pg (25.0-34.0); Mean Corpuscular Volume 97.3 fL (80.0-100.0); Platelet Count 68 K/uL (130-400); RDW Standard Deviation 39.9 fL (36.4-46.3); Red Blood Count 3.72 M/uL (4.20-5.40); White Blood Count 3.95 K/ul (4.8-10.8)
[2025-02-17] MEDS: MAGNESIUM SULFATE / D5W 1 GM/100 ML BAG IV STA (15:46)
[2025-02-17] MEDS: POTASSIUM CHLORIDE / WTR 10 MEQ/100 ML PLCT IV ONE (15:49)
[2025-02-17 15:55] LABS: Amphetamines+Metham, Urine Neg (Neg); MDMA (Ecstacy), Urine Neg (Neg); Marijuana, Urine Neg (Neg)
--- NOTE | 2025-02-17 16:07 | CT Scan Report ---
EXAMINATION: Abdomen and pelvis CT with CLINICAL HISTORY: Lower abdominal pain PRIORS: 09/28/2024 TECHNIQUE: Contiguous axial images were obtained through the abdomen and pelvis with the use of intravenous contrast. Sagittal and coronal reformations are supplied. FINDINGS: Mild bibasilar subpleural reticular change suggesting interstitial lung disease. Right lower calcified granuloma. Fatty infiltration of the liver noted. Liver is enlarged with mildly nodular capsule with appearance of hepatic cirrhosis. No discrete enhancing mass. Recanalization of the periumbilical vein, with dilated draining varicosities extending into the pelvis into the right periuterine vessels. Gallbladder surgically absent. Portal vein is patent. Spleen is not enlarged. Stomach is under distended with no extraluminal gas or surrounding inflammatory change. The pancreas, spleen, adrenals, aorta and IVC are morphologically unremarkable. Mild-moderate atherosclerotic disease of the abdominal aorta. No hemoperitoneum or ascites. No free air. An intrauterine device noted in the central uterus. The kidneys enhance symmetrically no obstructing renal calculus or hydronephrosis. A phlebolith is present adjacent to the distal right ureter. Colon is under distended. No pericolonic inflammatory change. No dilated loops of bowel. Urinary bladder distended and morphologically unremarkable. No pelvic sidewall adenopathy. No free fluid in the pelvis. No adenopathy in the abdomen. No acute bony abnormality. IMPRESSION: 1. No acute finding in the abdomen or pelvis. 2. Hepatic cirrhosis and fatty infiltration of the liver, with evidence of portal hypertension, including recanalization of the periumbilical vein, draining into right periuterine vessels. 3. Mild bibasilar, peripheral predominant interstitial lung disease. Electronically signed by Gerardo Lackey 02-17-2025 4:07 PM
[2025-02-17] MEDS: ONDANSETRON INJ 2 MG/ML 2 ML VIAL IV STA (16:12)
[2025-02-17] MEDS: THIAMINE HCL 100 MG in SYRINGE 9 ML IV STA (16:22)
[2025-02-17] MEDS: LORazepam 1 MG/1 ML SYR ED Inj Use IV STA (16:26)
[2025-02-17] MEDS: POTASSIUM CHLORIDE / WTR 10 MEQ/100 ML PLCT IV SCH (16:56)
[2025-02-17] MEDS: MAGNESIUM SULFATE / D5W 1 GM/100 ML BAG IV SCH (16:56)
--- NOTE | 2025-02-17 17:16 | History & Physical Report ---
Date of Service February 17, 2025 Assessment & Plan (1) Alcohol intoxication in alcoholism with blood level over 0.3 with complication: (2) Alcohol withdrawal: (3) Hypokalemia: (4) Hypomagnesemia: (5) Alcoholic cirrhosis of liver: (6) Alcohol abuse: (7) Thrombocytopenia: (8) Neutropenia: (9) Hypothyroidism: (10) Portal venous hypertension: (11) Interstitial lung abnormality present on imaging study: Plan Patient 45-year-old female with known alcohol dependence presents to the emergency room intoxicated with alcohol requesting medical detox and evidence of alcohol withdrawal already in the emergency department. Patient is high risk for withdrawal seizures and delirium tremors. She needs hospital level care, monitoring and treatments Admit to the hospital in monitored setting Start phenobarbital withdrawal protocol. IM phenobarbital load with subsequent IM doses then transitioning to oral taper of phenobarbital As needed Ativan for elevated CIWA score Replace electrolytes Monitor laboratory studies Case management to discuss patient options for inpatient rehab Discussion with the patient at bedside previously had extensively discussed with her treatment for her alcohol dependence. She had declined inpatient rehab and opted for outpatient treatment. We discussed how this has not been successful for her and that she seriously needs to consider inpatient alcohol rehab if she would truly be committed to stopping alcohol. She had been abstinent of alcohol in the past, however, most of this time was when she was in senior living. Patient's aunt at bedside agreeable to plan of care History of Present Illness Chief Complaint: Alcohol intoxication with severe dependence and symptoms related to chronic alcohol use Primary Care Provider: Anupam Mi MD Patient is a 45-year-old female has a known history of alcohol dependence with previous hospitalizations and a remote history of severe withdrawal seizures and delirium tremors. Presents to the emergency room today with her aunt intoxicated on alcohol requesting medical detox. In the emergency room patient was noted to be intoxicated with alcohol and has significant electrolyte abnormalities. Referred to our service for further evaluation. Time my evaluation the patient was a little drowsy after receiving some Ativan in the ED. Electrolyte replacement was started. She was able to answer questions. Patient is known to me from previous hospitalizations. Patient states that she started drinking pretty much as soon after she was discharged in September. She usually is able to start drinking in a controlled fashion but then it gets out of control as her life gets more hectic. She states that she is drinking at minimum 1/5 of vodka per day. She states that she really is not eating much at all. Came into the ED today to seek help essentially because she could not really function at home, she was having some syncopal spells and realized that her drinking had has become [id number]. She denies any fever or chills. She admits to a chronic cough but no purulent sputum. She was also having some nausea and vomiting but no blood in the emesis. No blood in her stools. No significant abdominal pain. No swelling in her hands arms legs or feet. No significant joint pains. In the past the patient had declined inpatient alcohol rehab. She states that she sees a alcohol counselor as well as sees mental health specialist. She reports that she has been on naltrexone but never went forward with the Vivitrol injections. She does states that she goes to AA meetings as well. Patient reports that her last drink was this morning when she took a shot of vodka. Allergies Allergy/AdvReac Type Severity Reaction Status Date / Time No Known Allergies Allergy Unverified 09/28/24 17:42 Home Medications Medication Instructions Recorded Confirmed Type levothyroxine 50 mcg tablet 50 mcg PO DAILYBB 05/08/24 02/17/25 History multivitamin 1 tab PO DAILY 09/28/24 02/17/25 History folic acid 1 mg tablet 1 mg PO QAM 02/17/25 02/17/25 History hydroxyzine pamoate 50 mg capsule 50 mg PO HS 02/17/25 02/17/25 History thiamine HCl (vitamin B1) 100 mg 100 mg PO QAM 02/17/25 02/17/25 History tablet Past Med/Surg History Problem List (Updated 02/17/25 @ 17:13 by Fritz Pena DO) Interstitial lung abnormality present on imaging study Portal venous hypertension Hypokalemia (Acute) Alcoholic intoxication (Acute) Alcoholic cirrhosis of liver Alcohol intoxication in alcoholism with blood level over 0.3 with complication Alcohol abuse (Acute) Thrombocytopenia Neutropenia Smoker Epigastric abdominal pain (Acute) Cough (Acute) Pancreatitis (Acute) Vomiting (Acute) Hypomagnesemia (Acute) Alcohol withdrawal (Acute) Hypothyroidism Hypertension Acute pancreatitis Medical History Alcohol withdrawal Social History Smoking Status: Current every day smoker Tobacco Type: Cigarettes Second Hand Exposure: Yes; Do You Dip or Chew Tobacco: No; Hx Alcohol Use: Yes Alcohol type: beer Hx Substance Use: No Preferred Language: Syriac Communication Ability: Effective Parole Agent Required: No Beliefs That Will Affect Care: None Current Living Situation: Other Feels Safe at Home: Yes Assistive Devices: None Review of Systems Review of Systems: Pertinent positive and negative review of systems as mentioned in the HPI Physical Exam Physical Exam: Constitutional: Alert, ill in appearance, nontoxic HEENT: Mucous membranes moist. Sclera clear, poor dentition Neck: Soft, no adenopathy Lungs: Clear to auscultation, decreased, no wheezes rales or rhonchi CV: S1-S2, regular Abdomen: Soft, nontender, nondistended Extremities: No significant edema Musculoskeletal: No significant joint tenderness Neuro: No focal deficits, generally weak Psych: Cooperative, depressed mood Results & Data Results & Data Vital Signs (Past 12 Hours) Vital Signs Temp Pulse Resp BP Pulse Ox O2 Del Method 02/17/25 15:10 96 Room Air 02/17/25 13:57 36.5 C 98 H 19 152/90 H 96 Room Air Diagnostic Findings Reviewed imaging, laboratory and diagnostic studies. Pertinent findings as below. WBCs 3.9 Hemoglobin 12.3 Platelets of 68 Coagulation panel within normal limits Potassium 3.1 Creatinine 0.6 Glucose 125 Calcium 8.3 Magnesium 1.6 AST 45 Other LFTs within normal ranges Lipase 28 TSH 3.3 hCG negative Urinalysis negative for signs of infection Urine drug screen negative Ethyl alcohol level 3-3.5 CT of the abdomen showed significant hepatic cirrhosis and infiltrative fatty in filtration of the liver with evidence of portal hypertension. Base of the lungs consistent with interstitial lung disease Personally reviewed EKG, sinus rhythm, no acute ST-T wave changes Code Status & VTE Plan VTE Prophylaxis Plan VTE Prophylaxis will be ordered: Yes
[2025-02-17] MEDS ORDERED: ALUMINUM/MAGNESIUM SUSP 30 ML UDC PO PRN (17:50)
[2025-02-17] MEDS ORDERED: MELATONIN 3 MG TAB PO PRN (17:50)
[2025-02-17] MEDS ORDERED: Ativan IV Alcohol Withdrawal--Active Protocol IV PRN (17:50)
[2025-02-17] MEDS ORDERED: ACETAMINOPHEN 325 MG TAB PO PRN (17:50)
[2025-02-17] MEDS ORDERED: POLYETHYLENE (MIRALAX) 17 GM PACK PO PRN (17:50)
[2025-02-17] MEDS ORDERED: Ativan PO Alcohol Withdrawal--Active Protocol PO PRN (17:50)
[2025-02-17] MEDS ORDERED: LORazepam 1 MG TAB PO PRN ×3 (17:50)
[2025-02-17] MEDS: POTASSIUM CHLORIDE CRTAB 20 MEQ TABCR PO STA (18:08)
[2025-02-17] MEDS: ENOXAPARIN INJ 40 MG/0.4 ML SYR SQ SCH (18:09)
[2025-02-17] MEDS: PHENobarbital PO Alcohol Withdrawal PO STA (18:09)
[2025-02-17] MEDS: SODIUM CHLORIDE 0.9% 500 ML IV SCH (18:10)
[2025-02-17] MEDS: ONDANSETRON INJ 2 MG/ML 2 ML VIAL IV PRN (22:05)
[2025-02-18] MEDS: LEVOTHYROXINE SODIUM 50 MCG TABLET PO SCH (05:56)
[2025-02-18 06:48] LABS: Hematocrit (blood only) 33.7 % (37.0-47.0); Hemoglobin 11.5 g/dl (12.0-16.0); Mean Corpuscular Hemoglobin 33.1 pg (25.0-34.0); Mean Corpuscular Volume 97.1 fL (80.0-100.0); Platelet Count 52 K/uL (130-400); RDW Standard Deviation 39.8 fL (36.4-46.3); Red Blood Count 3.47 M/uL (4.20-5.40); White Blood Count 3.73 K/ul (4.8-10.8)
[2025-02-18 07:17] LABS: Anion Gap 7.0 (3-11); Blood Urea Nitrogen 3.0 mg/dl (6-23); Calcium 8.0 mg/dl (8.6-10.3); Carbon Dioxide 27.0 mmol/L (21-32); Chloride 104.0 mmol/L (98-107); Creatinine Clr Calc Pharmacy 106.9 ml/min; Glucose 84.0 mg/dl (70-99(Fasting)); Magnesium 1.7 mg/dl (1.7-2.4); Potassium 3.8 mmol/L (3.5-5.1); Sodium 138.0 mmol/L (136-145)
[2025-02-18 07:30] LABS: Folate (Folic Acid),Ser orPlas 10.47 ng/ml (>5.38)
[2025-02-18 07:31] LABS: Vitamin B12 173.0 pg/ml (180-914)
[2025-02-18] MEDS: REMOVE NICODERM PATCH SCH (08:35)
[2025-02-18] MEDS: FOLIC ACID 1 MG TAB PO SCH (08:36)
[2025-02-18] MEDS: THIAMINE HCL 100 MG TAB PO SCH (08:36)
[2025-02-18] MEDS: NICOTINE 14 MG/24 HR PATCH TD SCH (08:36)
[2025-02-18] MEDS: MULTIVITAMIN TAB PO SCH (08:36)
[2025-02-18] MEDS: POTASSIUM CHLORIDE CRTAB 20 MEQ TABCR PO SCH (08:39)
[2025-02-18] MEDS: MAGNESIUM OXIDE 400 MG TAB PO SCH (08:39)
--- NOTE | 2025-02-18 12:11 | Hospitalist Progress Note ---
Date of Service February 18, 2025 Assessment & Plan (1) Alcohol intoxication in alcoholism with blood level over 0.3 with complication: (2) Alcohol withdrawal: (3) Hypokalemia: Plan: Repleted (4) Hypomagnesemia: Plan: Repleted (5) Alcoholic cirrhosis of liver: (6) Acquired pancytopenia: Plan: Due to alcohol misuse, bone marrow suppression and chronic liver disease (7) Alcohol abuse: (8) Hypothyroidism: (9) Portal venous hypertension: (10) Interstitial lung abnormality present on imaging study: Plan Patient 45-year-old female with longstanding history of alcohol dependence and misuse, presented intoxicated in early withdrawal. Patient did not receive full phenobarbital loading due to sedation. She did get some supplemental Ativan. Discontinue Ativan, use phenobarbital only to manage withdrawal symptoms Can start oral phenobarbital titration. As needed IM phenobarbital for CIWA score Continue replace electrolytes Monitor laboratory studies Patient has history of severe alcohol withdrawal with seizures and delirium tremors. High risk for recurrent symptoms and needs hospital level care and management and monitoring. Admission and Anticipated Discharge Date Admission Date: February 17, 2025 Subjective Patient was very drowsy and sleepy this morning. CIWA score 2 Physical Exam Physical Exam: Constitutional: Asleep but able to be awakened HEENT: Mucous membranes moist. Lungs: Clear to auscultation, decreased, no wheezes rales or rhonchi CV: S1-S2, regular Abdomen: Soft, nontender, nondistended Extremities: No significant edema Neuro: No focal deficits, generally weak Psych: Cooperative, depressed mood Results & Data Results & Data Vital Signs (Past 12 Hours) Vital Signs Temp Pulse Resp BP Pulse Ox O2 Del Method 02/18/25 12:06 36.9 C 77 17 135/87 97 Room Air 02/18/25 10:35 36.8 C 70 20 121/83 97 Room Air 02/18/25 08:46 Room Air 02/18/25 08:00 36.9 C 78 18 131/83 96 Room Air 02/18/25 07:42 36.8 C 70 21 133/76 98 Room Air 02/18/25 05:54 36.9 C 80 20 128/82 96 Room Air 02/18/25 03:05 36.7 C 83 26 H 143/90 H 97 Room Air Diagnostic Findings Reviewed imaging, laboratory and diagnostic studies. Pertinent findings as below. WBCs 3.7 Hemoglobin 11.5 Platelets of 52 Potassium 3.8, improved Phosphorus 2.4 Magnesium 1.7, improved Vitamin B12 173 TSH 3.3
[2025-02-18] MEDS: CYANOCOBALAMIN 1000 MCG/ML VIAL IM SCH (12:56)
[2025-02-18] MEDS: POT PHOSPHATE MONOBASIC W/ SOD TAB PO SCH (13:02)
[2025-02-19 06:32] VITALS: O2SAT 97
[2025-02-19 06:35] LABS: Anion Gap 9.0 (3-11); Blood Urea Nitrogen 5.0 mg/dl (6-23); Calcium 8.8 mg/dl (8.6-10.3); Carbon Dioxide 24.0 mmol/L (21-32); Chloride 103.0 mmol/L (98-107); Creatinine Clr Calc Pharmacy 97.0 ml/min; Glucose 111.0 mg/dl (70-99(Fasting)); Magnesium 1.8 mg/dl (1.7-2.4); Potassium 3.7 mmol/L (3.5-5.1); Sodium 136.0 mmol/L (136-145)
[2025-02-19 07:53] VITALS: BP 143/97; RESP 18; TEMP 98.1
--- NOTE | 2025-02-19 07:57 | Electrocardiogram Report ---
Test Reason : Blood Pressure : */* mmHG Vent. Rate : 72 BPM Atrial Rate : 72 BPM P-R Int : 116 ms QRS Dur : 88 ms QT Int : 400 ms P-R-T Axes : 16 49 42 degrees QTcB Int : 438 ms Normal sinus rhythm Cannot rule out Anterior infarct (cited on or before 29-Sep-2024) Abnormal ECG When compared with ECG of 29-Sep-2024 11:07, T wave inversion no longer evident in Inferior leads Nonspecific T wave abnormality no longer evident in Anterior leads Confirmed by Mar Mccormick (Jackelyn) on 02/19/2025 7:57:08 AM Referred By: Confirmed By: Mar Mccormick
[2025-02-19 10:06] VITALS: PULSE 77
--- NOTE | 2025-02-19 10:08 | Discharge Summary ---
Discharge Summary Date of Service February 19, 2025 Principal Dx & Hospital Course #1 = Principal Diagnosis (1) Alcohol intoxication in alcoholism with blood level over 0.3 with complication: (2) Alcohol withdrawal: (3) Hypokalemia: Repleted (4) Hypomagnesemia: Repleted (5) Alcoholic cirrhosis of liver: (6) Acquired pancytopenia: Due to alcohol misuse, bone marrow suppression and chronic liver disease (7) Alcohol abuse: (8) Hypothyroidism: (9) Portal venous hypertension: (10) Interstitial lung abnormality present on imaging study: Plan Patient 45-year-old female with known alcohol dependence and misuse presented to the emergency room intoxicated requesting medical detox. At the time of admission patient was committed to pursuing more intensive counseling and rehabilitation for alcohol dependence. Patient was admitted to the hospital. She is given some fluid resuscitation. Her electrolytes were repleted. She was started on phenobarbital alcohol withdrawal protocol. Initially receiving IM phenobarbital and then transitioning to an oral phenobarbital taper. To the course of her hospitalization her CIWA scores were overall fairly well-managed. On the morning of discharge she was sitting up in bed she had minimal symptoms. She was stating that she wanted to go home and no longer wanted to be cared for in the hospital. She states that she no longer has any interest in pursuing inpatient alcohol rehab. She feels that she is improved to the point where she can be discharged home. Electrolytes are stable. Other vital signs are stable. There is no evidence of severe withdrawal symptoms or or impending DTs. I strongly encouraged her to continue outpatient therapy and counseling. Strongly encouraged her to pursue an inpatient alcohol rehab. We had discussed multiple times before how what she is doing currently does not seem to be effective with managing her dependence. She said she will consider this. She will be given a tapering dose of phenobarbital to complete outpatient. I strongly encouraged her to follow-up with her outpatient providers and of course stop all alcohol. Notes For Next Care Provider Patient has signs of cirrhosis on imaging. Due to her extensive alcohol misuse and dependence, may need outpatient hepatology evaluation Continue to encourage patient to do intensive outpatient counseling for alcohol dependence, encourage possible inpatient rehab Medication Changes From Visit Phenobarbital taper Pepcid for gastritis Electrolyte replacements Admission HPI Per Admitting Provider Patient is a 45-year-old female has a known history of alcohol dependence with previous hospitalizations and a remote history of severe withdrawal seizures and delirium tremors. Presents to the emergency room today with her aunt intoxicated on alcohol requesting medical detox. In the emergency room patient was noted to be intoxicated with alcohol and has significant electrolyte abnormalities. Referred to our service for further evaluation. Time my evaluation the patient was a little drowsy after receiving some Ativan in the ED. Electrolyte replacement was started. She was able to answer questions. Patient is known to me from previous hospitalizations. Patient states that she started drinking pretty much as soon after she was discharged in September. She usually is able to start drinking in a controlled fashion but then it gets out of control as her life gets more hectic. She states that she is drinking at minimum 1/5 of vodka per day. She states that she really is not eating much at all. Came into the ED today to seek help essentially because she could not really function at home, she was having some syncopal spells and realized that her drinking had has become [id number]. She denies any fever or chills. She admits to a chronic cough but no purulent sputum. She was also having some nausea and vomiting but no blood in the emesis. No blood in her stools. No significant abdominal pain. No swelling in her hands arms legs or feet. No significant joint pains. In the past the patient had declined inpatient alcohol rehab. She states that she sees a alcohol counselor as well as sees mental health specialist. She reports that she has been on naltrexone but never went forward with the Vivitrol injections. She does states that she goes to AA meetings as well. Patient reports that her last drink was this morning when she took a shot of vodka. Admission Exam Per Admitting Provider See H&P Discharge Exam Constitutional: Alert, nontoxic HEENT: Mucous membranes moist. Lungs: Clear to auscultation, decreased, no wheezes rales or rhonchi CV: S1-S2, regular Abdomen: Soft, nontender, nondistended Extremities: No significant edema Neuro: No focal deficits, no significant tremor Psych: Cooperative, normal mood, normal cognition Updated Medication List Medication Instructions Recorded Confirmed Type levothyroxine 50 mcg tablet 50 mcg PO DAILYBB 05/08/24 02/17/25 History multivitamin 1 tab PO DAILY 09/28/24 02/17/25 History folic acid 1 mg tablet 1 mg PO QAM 02/17/25 02/17/25 History hydroxyzine pamoate 50 mg capsule 50 mg PO HS 02/17/25 02/17/25 History thiamine HCl (vitamin B1) 100 mg 100 mg PO QAM 02/17/25 02/17/25 History tablet famotidine 20 mg tablet (Pepcid) 20 mg PO BID #60 tabs 02/19/25 Rx magnesium oxide 400 mg (241.3 mg 400 mg PO QAM #30 tabs 02/19/25 Rx magnesium) tablet phenobarbital 30 mg tablet See Rx Instructions .Route 02/19/25 Rx .COMPLEX #12 tabs sodium di- and 1 tab PO BID #20 tabs 02/19/25 Rx monophosphate-potassium phos monobasic 250 mg tablet (Phospha Neutral) Hospital Stay Data Consultations 02/17/25 16:34 ED Decision to Admit Stat Diagnostic Imagining Performed 02/17/25 14:12 CT abd pelvis IV con only Stat Reviewed imaging, laboratory and diagnostic studies. Pertinent findings as below. Potassium 3.7 Creatinine 0.68 [address] of the abdomen and pelvis showed hepatic cirrhosis and fatty infiltration of the liver with evidence of portal hypertension. Basilar lung imaging showed some interstitial lung disease. Pending Results Patient Have Any Pending Studies at Discharge: No Discharge Instructions Given to Patient (Per Discharging Provider) Strongly recommend you continue with intensive outpatient counseling for your alcohol dependence, continue with alcoholic Anonymous Strongly recommend you consider admitting yourself to an inpatient alcohol rehab Total Time Total Time Spent Total Time Spent (In Minutes): 25
== END 2025-02-19 10:21 | disposition home or self-care (01) | DRG 897 ==
LOC: ED 13:53 → EDINP 17:05 → 2E 17:50